=== PATIENT | female | born 1950 | race Caucasian/White ===

== ENCOUNTER 2017-07-11 08:07 | Day surgery (SDC) | payer OTHER ==
[~2017-07-11] VITALS: Ht 165.1 cm; Wt 81.0 kg
[2017-07-11] VITALS (10 sets, daily range): BP systolic 135–148; BP diastolic 83–97; PULSE 77–92; RESP 16–20; TEMP 98–99.1; O2SAT 96–100
[2017-07-11] MEDS ORDERED: CHLORHEXIDINE GLUCONATE 2 % 1 PACK (2 CLOTHS) TOPICAL PRN (08:45)
[2017-07-11] MEDS ORDERED: LORazepam 1 MG TAB SL SCH (08:45)
[2017-07-11] MEDS ORDERED: LACTATED RINGER'S 1000 ML IV PRN (08:45)
[2017-07-11] MEDS ORDERED: METOPROLOL TARTRATE 25 MG TAB PO PRN (08:45)
[2017-07-11] MEDS ORDERED: POVIDONE IODINE 5% (ANTISEPSIS KIT) 4 APPLICATIONS EACH NARE PRN (08:45)
[2017-07-11] MEDS ORDERED: SODIUM CHLORID 0.9% 500 ML IV PRN (08:45)
[2017-07-11] MEDS ORDERED: CHOL10008 (08:49)
[2017-07-11] MEDS ORDERED: OMEP40CA2 (08:49)
[2017-07-11] MEDS ORDERED: SODIUM CHLORID 0.9% 500 ML INJ 500 ML IV SCH (09:00)
[2017-07-11] MEDS ORDERED: LEVOFLOXACIN 500 MG PREMIX INJ 100 ML IV ONE (09:15)
[2017-07-11 09:20] LABS: AUTOMATED NEUTROPHIL # 1.9 TH/MM3 (1.8-7.7); BASOPHIL % 1.2 % (0.0-2.0); EOSINOPHIL # 0.1 TH/MM3 (0-0.4); EOSINOPHIL % 2.3 % (0.0-4.0); HEMATOCRIT 38.6 % (35.0-46.0); HEMOGLOBIN 13.5 GM/DL (11.6-15.3); LYMPH % 28.1 % (9.0-44.0); MEAN CELL VOLUME 97.2 FL (80.0-100.0); MEAN CORPUSCULAR HGB CONC 34.9 % (32.0-36.0); MEAN PLATELET VOLUME 7.4 FL (7.0-11.0); MONO % 13.3 % (0.0-8.0); MONOCYTE # 0.5 TH/MM3 (0-0.9); NEUT % 55.1 % (16.0-70.0); PLATELET COUNT 254 TH/MM3 (150-450); RED BLOOD COUNT 3.98 MIL/MM3 (4.00-5.30); RED CELL DISTRIBUTION WIDTH 12.2 % (11.6-17.2); WHITE BLOOD COUNT 3.5 TH/MM3 (4.0-11.0)
[2017-07-11] MEDS ORDERED: APIX2.5T PO (09:26)
[2017-07-11 09:27] LABS: INTERNATIONAL NORMALIZED RATIO 1.1 RATIO; PROTHROMBIN TIME - PATIENT 10.7 SEC (9.8-11.6)
[2017-07-11 09:44] LABS: CALCIUM 8.8 MG/DL (8.5-10.1); CREATININE 0.72 MG/DL (0.50-1.00)
--- NOTE | 2017-07-11 11:40 | EKG ---
Date Performed: 07/11/2017 Time Performed: 09:33:16 PTAGE: 66 years EKG: Sinus rhythm Left axis deviation Poor R wave progression - probable normal variant Low QRS voltages in precordial leads Borderline ECG NO PREVIOUS TRACING DOCTOR: Timothy Law Interpretating Date/Time 07/11/2017 11:38:14
[2017-07-11] MEDS ORDERED: GLYCOPYRROLATE 1 MG/5 ML SYRINGE IV PUSH ONE (12:00)
[2017-07-11] MEDS ORDERED: PHENYLEPH/NS 1000 MCG/10 ML SYR IV ONE (12:00)
[2017-07-11] MEDS ORDERED: NEOSTIGMINE 5 MG/5 ML SYRINGE IV PUSH ONE (12:00)
[2017-07-11] MEDS ORDERED: ONDANSETRON HCL 4 MG/2 ML VIAL IV ONE (12:00)
[2017-07-11] MEDS ORDERED: PROPOFOL 200 MG/20 ML AMP IV ONE (12:00)
[2017-07-11] MEDS ORDERED: LIDOCAINE HCL 1% PF 5 ML SYRINGE OTHER ONE (12:00)
[2017-07-11] MEDS ORDERED: DEXAMETHASONE SOD PHOS 4 MG/ML VIAL IV ONE (12:00)
[2017-07-11] MEDS ORDERED: ROCURONIUM INJ 50 MG/5 ML SYRINGE IV PUSH ONE (12:00)
[2017-07-11] MEDS ORDERED: SODIUM CHLOR 0.9% 250 ML INJ 500 ML IV ONE (12:00)
[2017-07-11] MEDS ORDERED: HEPARIN-D5W 25,000 U/250 ML 250 ML ONE (12:40)
[2017-07-11] MEDS ORDERED: PROTAMINE SULFATE 50 MG/5 ML VIAL ONE (12:41)
[2017-07-11] MEDS ORDERED: HEPARIN SODIUM - IV 10,000 UNITS/10 ML VIAL ONE ×2 (12:41→13:40)
[2017-07-11] MEDS ORDERED: LIDOCAINE HCL 1% PF 30 ML VIAL ONE (12:58)
--- NOTE | 2017-07-11 15:05 | CATHPROC ---
Patient Name: CINDI RIBERA Study #: [id number] Initial MD: Nusrat Mcdermott Date of : 1950 Study Date: 07/11/2017 Cardiac Catheterization Report 07/11/2017 3:09:52 PM Financial #: [id number] 1 of 9 Patient Name: CINDI RIBERA Study #: [id number] Initial MD: Nusrat Mcdermott Date of : 1950 Study Date: 07/11/2017 Entire Case Report Patient Information Patient Name CINDI RIBERA Date of 1950 Age 66 years Financial # [id number] Gender F AlternateID Lab Number 2 Room Number DC06 Height (in) 65.0 Height (cm) 165.1 BSA 1.92 Weight (lbs) 185.0 Weight (kg) 84.1 Patient Address/Phone Number Home Address [facility] Home Phone Number [address] [facility] [address] Study Information Study Number Admission Scheduled Start Study Start [id number] Jul 11 2017 8:07AM 07/11/2017 Jul 11 2017 12:10PM [place] Electrophysiology Study Admit Source Facility Department Other [facility] Attendant Physician and Clinical Staff Initial Nusrat Molina Manufacturing Sr Engineer Miya Caldwell,RT(R) TECH2 Other Anesthesia, SECURITY CONSULTANT Recorder Sruthi Drew BSN Recorder Antionette Syed,REGINO Scrub Matty EncinasRT(R) Procedures Performed Procedure Location (Site) Vessel Name Ablation Procedure ICE CATHETER INSERT RA Atruim 07/11/2017 3:09:52 PM Financial #: [id number] 2 of 9 Patient Name: CINDI RIBERA Study #: [id number] Initial MD: Nusrat Mcdermott Date of : 1950 Study Date: 07/11/2017 Equipment Time 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 Used 65 BUNDLE *[id number]- BUNDLE [id number] CATHETER, FR7 OPTIMA SPIRAL 13:12 [employer] FR7 *[id number]- Used BUNDLE BUNDLE [id number] 13:12 [employer] CATHETER, JSN, QUAD BUNDLE FR 5 *[id number]- Used BUNDLE [id number] 13:12 [employer]UN[employer] CATHETER, JSN, QUAD BUNDLE FR 5 *[id number]- Used BUNDLE [id number] SET, COOL POINT TUBING 13:12 BUND[employer] *[id number]- Used BUNDLE BUNDLE SHEATH, FR8.5 STEERABLE SM 13:12 BUND[employer] 71CM [id number] Used 71CM BUNDLE COVER, TRANSDUCER CABLE 612-113 13:12 [employer] Used ACUNAV *[id number] 13:12 CORDIS/PACER SHEATH, FR10 JANESSA 11CM FR 10 Used *[id number] 13:12 CORDIS/PACER SHEATH, FR9 JANESSA 11CM FR 9 [id number] Used [id number] 13:12 [employer] PACK, CCL CUSTOM * Used *[id number] 13:12 [employer] PACER EMMANUEL, LIMB * 2530 *[id number] Used [id number] 13:12 [employer] MEDICAL SHEATH, FR4.5 PRELUDE 11CM FR 4.5 Used [id number] 13:12 NAMIC TUBING, HIGH PRESSURE 48" 48" Used *[id number] 13:12 NAMIC TUBING, HIGH PRESSURE 48" 48" Used *[id number] [id number] 13:12 [employer] BL[employer]ET,WARM AIR CCL * Used *9854186 [id number] 13:12 [employer] MEDICAL ELECTRODE KIT, KOURTNEY X SURFACE * Used *[id number] 763679 13:12 [employer] MEDICAL SHEATH, EPS, FR6 FAST CATH FR 6 Used *[id number] 13:12 [employer] MEDICAL SHEATH, EPS, FR7 FAST CATH FR 7 [id number] Used [id number] 13:12 [employer] MEDICAL SHEATH, EPS, FR8 FAST CATH FR 8 Used *[id number] 13:33 [employer] MEDICAL SHEATH, FR8.5 SL0 196056 Used CATHETER, ACUNAV FR10 ICE [id number] 13:22 JEM FR 10 Used (JEM) *[id number] [facility] PAD, ELECTROSURGICAL 13:12 * [id number] *[id number] Used SURGICAL GROUNDING (BLUE) 07/11/2017 3:09:52 PM Financial #: [id number] 3 of 9 Patient Name: CINDI RIBERA Study #: [id number] Initial MD: Nusrat Mcdermott Date of : 1950 Study Date: 07/11/2017 Insurance Information Insurance Payor [facility] Health Insurance Third Republican Third Republican Number [facility] Medication Medication Total Dose (Bolus/Oral) Medication Total Dosage/Unit 1% XYLOCAINE 40 mL HEPARIN 32873 units PROTAMINE 40 mg Medications (Bolus/Oral) Medication Time Given Dosage/Unit Administered By Reason 1% XYLOCAINE 07/11/2017 1:14:03 PM 20 mL Nusrat Mcdermott 20 mL 1% XYLOCAINE given in lab by Nusrat Mcdermott in Left Groin via Subcutaneous. Ordered by Shayan Mcdermott 1% XYLOCAINE 07/11/2017 1:18:27 PM 20 mL Nusrat Mcdermott 20 mL 1% XYLOCAINE given in lab by Nusrat Mcdermott in Right Groin via Subcutaneous. Ordered by Dami Mcdermott. HEPARIN 07/11/2017 1:25:37 PM 40005 units Anesthesia, SECURITY CONSULTANT As per physicians v erbal order 60158 units HEPARIN given in lab by Anesthesia, SECURITY CONSULTANT via Peripheral IV. Ordered by Nusrat Mcdermott. Rach son: As per physicians verbal order. HEPARIN 07/11/2017 1:40:44 PM 2000 units Anesthesia, SECURITY CONSULTANT 2000 units HEPARIN given in lab by Anesthesia, SECURITY CONSULTANT in Right Antecubital via Peripheral IV. Ordered Nusrat Thakur. HEPARIN 07/11/2017 2:01:18 PM 2000 units Anesthesia, SECURITY CONSULTANT 2000 units HEPARIN given in lab by Anesthesia, SECURITY CONSULTANT in Right Antecubital via Peripheral IV. Ordered Nusrat Thakur. PROTAMINE 07/11/2017 2:43:04 PM 40 mg Anesthesia, SECURITY CONSULTANT 40 mg PROTAMINE given in lab by Anesthesia, SECURITY CONSULTANT. Ordered by Nusrat Mcdermott. Medication (Drip) Medication Time Given Dosage/Unit Concentration/Unit Diluent (ml) Solution HEPARIN DRIP 07/11/2017 1:44:11 PM 1000 units/hr 50461 units 250 D5W 1000 units/hr HEPARIN DRIP given in lab by Anesthesia, SECURITY CONSULTANT via Peripheral IV. Pump/Drip Flow = 10 ml /hr [place] [address] units in 250 ml. Ordered by Nusrat Mcdermott. ISUPREL 07/11/2017 2:26:02 PM 20 mcg/min 1 mg 250 NaCl .9 20 mcg/min ISUPREL given in lab by Anesthesia, SECURITY CONSULTANT via Peripheral IV. Pump/Drip Flow = 300 ml/hr usi ng NaCl .9 with a concentration of 1 mg in 250 ml. Ordered by Nusrat Mcdermott. Reason: As per physicians verbal order. 07/11/2017 3:09:52 PM Financial #: [id number] 4 of Patient Name: CINDI RIBERA Study #: [id number] Initial MD: Nusrat Mcdermott Date of : 1950 Study Date: 07/11/2017 Initial Case Assessment Cardiovascular HR NIBP 75 152/90 Edema Present Skin color Skin None Normal Warm Dry Circulatory - Right Pulses Dorsalis Pedis 2 Scale (0,1,2,3,4,d) Circulatory - Left Pulses Dorsalis Pedis 2 Scale (0,1,2,3,4,d) Circulatory - Lower Extremities Color Lower Right Color Lower Left Normal Normal Neurological State Oriented to time-place- Alert Moves all extremities person Respiration - General Respiration Rate SpO2 (%) (B/min) 18 99 07/11/2017 3:09:52 PM Financial #: [id number] 5 of 9 Patient Name: CINDI RIBERA Study #: [id number] Initial MD: Nusrat Mcdermott Date of : 1950 Study Date: 07/11/2017 Final Case Assessment Cardiovascular HR Rhythm NIBP 98 NSR 151/78 Edema Present Skin color Skin None Normal Warm Dry Circulatory - Right Pulses Dorsalis Pedis 2 Scale (0,1,2,3,4,d) Circulatory - Left Pulses Dorsalis Pedis 2 Scale (0,1,2,3,4,d) Circulatory - Lower Extremities Color Lower Right Color Lower Left Normal Normal Neurological State Oriented to time-place- Drowsy Moves all extremities person Respiration - General Respiration Rate SpO2 (%) (B/min) 14 100 Chronological Log Time Study Chronological Log 12:06:40 Patient arrived via Bed. 12:06:46 Patient Name, D.O.B, / Armband Verified By R.N. 12:09:51 Consent signed by the physician and the patient and verified by the Washroom Attendant staff. 12:09:53 Verbal Stimulation=2 Physical Stimulation=2 Airway=2 Respiration=2 TOTAL=8. (0=absent, 1=li mited, 2=present) 12:10:30 Patient has been NPO for More than 6Hrs. 12:10:31 Skin Breakdown- none per patient 12:10:34 Indwelling Galicia catheter present upon patient's arrival. 12:10:36 Patient Warmer Placed on the Table. 12:10:37 Disposable Defibrillator Pads Placed On Patient. 07/11/2017 3:09:52 PM Financial #: [id number] of 9 Patient Name: CINDI RIBERA Study #: [id number] Initial MD: Nusrat Mcdermott Date of : 1950 Study Date: 07/11/2017 12:10:38 Shadi Prominences Protected 12:10:42 History and physical on the chart or being dictated. Assessment: Initial Case, HR=75 BPM, LUWB=405/90 mmhg, Edema=None, Color=Normal, Skin = Warm, D ry Right Pulses: Fili Ped=2 Left Pulses: Fili Ped=2 12:15:24 Lower Right Extremities: Color=Normal Lower Left Extremities: Color=Normal Neurological: State=Alert, Ox3, PACHECO Respiration: Resp=18 B/min, SpO2=99 % 12:19:34 A # 20 IV was noted in the Antecubital (right). Grade = 0 0.9%NaCl @ KVO 12:20:43 A # 20 IV was noted in the Antecubital (left). Grade = 0 0.9%NaCl @ KVO 12:22:35 Table restraints applied according to hospital policy 12:29:54 Anesthesia at bedside. Assumes care of patient. 12:46:22 Anesthesiologist present for intubation. 12:51:51 Bilateral groins prepped with 2% chlorhexidine, and draped after a 3 minute waiting time. 12:53:00 Pt has difficult airway. Waiting for Glidescope supplies to arrive from OR 12:54:29 Reference ECG taken 13:01:43 Pt intubated using Glidescope without difficulty. 13:03:44 MD arrived. Time Out. Correct patient, procedure, procedure equipment, site and side verified with physicia n present. Time 13::09 concurred by MD, individual staff and SECURITY CONSULTANT. Time Out #2 - Consents verified, patient in correct position, all results are labled and displa yed, safety precautions 13:09:58 taken, antibiotics administered. Time out concurred by MD, individual staff and SECURITY CONSULTANT in procedu re 13:09:59 Case Start 13:10:37 JERED in progress. 13:13:09 JERED completed. 13:14:03 20 mL 1% XYLOCAINE given in lab by Nusrat Mcdermott in Left Groin via Subcutaneous. Ordered by Nusrat Mcdermott. 13:14:21 Vascular access was obtained in the Fem Vein (left). 13:14:37 Vascular access was obtained in the Fem Vein (left). 13:14:50 Vascular access was obtained in the Fem Vein (left). 13:15:25 Vascular access was obtained in the Fem Art (left). 13:15:33 A SHEATH, FR4.5 PRELUDE 11CM FR 4.5 was advanced into the Fem Art (left) using the Modified Seldinger technique. 13:15:59 A SHEATH, EPS, FR6 FAST CATH FR 6 was advanced into the Fem Vein (left) using the Modified Seldinger technique. 13:16:51 A SHEATH, EPS, FR7 FAST CATH FR 7 was advanced into the Fem Vein (left) using the Modified Seldinger technique. 13:17:04 A SHEATH, FR10 JANESSA 11CM FR 10 was advanced into the Fem Vein (left) using the Modified S eldinger technique. 13:18:27 20 mL 1% XYLOCAINE given in lab by Nusrat Mcdermott in Right Groin via Subcutaneous. Ordered b Nusrat Flaherty. 13:18:50 Vascular access was obtained in the Fem Vein (right). 13:19:39 A SHEATH, EPS, FR8 FAST CATH FR 8 was advanced into the Fem Vein (right) using the Modified Seldinger technique. A CATHETER, JSN, QUAD BUNDLE FR 5 was advanced vis Fem Vein (left) and placed in the CS. Placem ent was visually 13:21:00 confirmed under fluoroscopy. via 7fr sheath A CATHETER, JSN, QUAD BUNDLE FR 5 was advanced vis Fem Vein (left) and placed in the HIS. Place ment was 13:21:18 visually confirmed under fluoroscopy. via 6fr sheath 07/11/2017 3:09:52 PM Financial #: [id number] 7 of 9 Patient Name: CINDI RIBERA Study #: [id number] Initial MD: Nusrat Mcdermott Date of : 1950 Study Date: 07/11/2017 13:22:16 CATHETER, ACUNAV FR10 ICE (Percolate) FR 10 Was Postioned. A SHEATH, FR8.5 STEERABLE SM 71CM BUNDLE 71CM was exchanged in the Fem Vein (right). This was n ecessary in 13:25:09 order for catheter support. 83618 units HEPARIN given in lab by Anesthesia, SECURITY CONSULTANT via Peripheral IV. Ordered by Jeff Mcdermott Reason: As per 13:25:37 physicians verbal order. 13:26:00 Marion needle in 13:28:38 temp 35.8 13:30:09 Introducer wire back in to help support Marion for transseptal access. 13:33:36 Activated Clotting Time Drawn 13:33:46 A SHEATH, FR8.5 SL0 was exchanged in the Fem Vein (right). This was necessary in order for catheter support. A SHEATH, FR8.5 STEERABLE SM 71CM BUNDLE 71CM was exchanged in the Fem Vein (right). This was n ecessary in 13:36:31 order for catheter support. 13:37:01 baylis in 13:38:25 A eps was advanced to the right atrium and passed through the septal wall to the left atriu m. 13:38:40 Marion out A CATHETER, FR7 OPTIMA SPIRAL BUNDLE FR7 was advanced vis Fem Vein (right) and placed in the LA . Placement 13:38:49 was visually confirmed under fluoroscopy. 13:39:16 mapping in progress 13:39:26 ACT (Normal Range 90-180) = 334 13:40:44 2000 units HEPARIN given in lab by Anesthesia, SECURITY CONSULTANT in Right Antecubital via Peripheral IV. Ordered by Nusrat Mcdermott. 1000 units/hr HEPARIN DRIP given in lab by Anesthesia, SECURITY CONSULTANT via Peripheral IV. Pump/Drip Flow = 10 ml/hr using 13:44:11 D[place] [address] units in 250 ml. Ordered by Nusrat Mcdermott. 13:51:12 mapping complete; spiral catheter out A CATHETER, TACTICATH ABLAT 65 BUNDLE was advanced vis Fem Vein (right) and placed in the LA. P lacement was 13:52:03 visually confirmed under fluoroscopy. 13:52:12 Ablation in progress 13:55:50 Activated Clotting Time Drawn 14:01:02 ACT (Normal Range 90-180) = 339 14:01:18 2000 units HEPARIN given in lab by Anesthesia, SECURITY CONSULTANT in Right Antecubital via Peripheral IV. Ordered by Nusrat Mcdermott. 14:19:46 Ablation complete. 14:21:32 Activated Clotting Time Drawn 20 mcg/min ISUPREL given in lab by Anesthesia, SECURITY CONSULTANT via Peripheral IV. Pump/Drip Flow = 300 ml/ hr using NaCl .9 14:26:02 with a concentration of 1 mg in 250 ml. Ordered by Nusrat Mcdermott. Reason: As per physicians abdoulaye bal order. 14:28:27 ACT (Normal Range 90-180) = 342 14:37:49 Isuprel and Heparin gtt off 14:41:21 Case End 14:41:36 All Catheters removed 14:41:56 Ablation procedure performed: AFIB. 14:42:01 EP Procedure was performed. 14:42:16 Sheath(s) left in place, will be removed in Holding Area 14:42:26 No case complications noted. 14:42:30 Cine recording checked. 07/11/2017 3:09:52 PM Financial #: [id number] 8 of 9 Patient Name: CINDI RIBERA Study #: [id number] Initial MD: Nusrat Mcdermott Date of : 1950 Study Date: 07/11/2017 14:43:04 40 mg PROTAMINE given in lab by Anesthesia, SECURITY CONSULTANT. Ordered by Nusrat Mcdermott. 14:44:41 PACU called. Spoke to Brandi 14:44:48 Bedside Report will be given. 14:54:33 ACT (Normal Range 90-180) = 132 14:57:28 Sterile dressings applied to bilateral sheath sites 14:58:05 Pt extubated to supplemental oxygen by anesthesia. Assessment: Final Case, HR=98 BPM, Rhythm=NSR, SMEV=352/78 mmhg, Edema=None, Color=Normal, Ski n = Warm, Dry Right Pulses: Fili Ped=2 Left Pulses: Fili Ped=2 15:02:02 Lower Right Extremities: Color=Normal Lower Left Extremities: Color=Normal Neurological: State=Drowsy, Ox3, PACHECO Respiration: Resp=14 B/min, PcT3=367 % 15:05:30 Patient moved to stretcher 15:06:12 Defibrillator and ground pads removed. Skin intact. 15:09:00 Pt transported to PACU via bed with SECURITY CONSULTANT and tech accompanying pt in stable condition marina castro independently. End Study - Contrast Media Used In Study Contrast Total Opened (mL) Total Used (mL) Total Wasted (mL) Omnipaque 0 0 0 End Study - Radiation Exposure Fluoro Time (minutes) 4.3 End Study - Patient Disposition Complications Transferred To No Telemetry Bed 07/11/2017 3:09:52 PM Financial #: [id number]
--- NOTE | 2017-07-11 15:12 | PD.CARD ---
Atrial Fibrillation Ablation PROCEDURE DATE: Jul 11, 2017 PROCEDURES PERFORMED: 1. Electrophysiology study on Isuprel infusion 2. CS cannulation 3. 3-D mapping 4. Transseptal approach 5. Right and left heart catheterization 6. Intracardiac echo 7. Radiofrequency ablation of atrial fibrillation 8. Pulmonary vein isolation 9. Posterior wall ablation 10. Mitral line creation 11. Anterior wall ablation INDICATIONS FOR THE PROCEDURE Ms. Evans is a 66-year-old female with hx of atrial fibrillation, previous ablation, very symptomatic, referred for electrophysiology study and ablation. The risks, the nature and the benefits of the procedure were clearly stated to her. The risks include pneumothorax, cardiac perforation, stroke, need for open heart surgery and even . The patient understood and agreed to proceed. DESCRIPTION OF THE PROCEDURE IN DETAIL As written informed consent was obtained prior to esophageal echocardiogram, the patient was kept on the table where she was prepped and draped in the usual sterile fashion. Conscious sedation was initiated and maintained throughout the procedure by the anesthesiologist. Once sedation was verified, the right and left inguinal areas were anesthetized with 2% Xylocaine. Using modified Seldinger technique, the left femoral vein was cannulated on three occasions, three guidewires were advanced. Over the wire a 6, 7 and a 10-Vincentian Hemaquet were advanced. Then the left femoral artery was cannulated on one occasion, one guidewire was advanced. Over the wire a 4-Vincentian Hemaquet was advanced. Then the right femoral vein was cannulated on one occasion, one guidewire was advanced. Over the wire a 8-Vincentian Hemaquet was advanced. Then under fluoroscopic guidance through the 6 and 7-Vincentian Hemaquet, two 5-Vincentian Farida curved quadripolar electrophysiology catheters were advanced and placed around the His as well as coronary sinus. Basic interval was measured. The patient was in sinus rhythm. Through the 10-Vincentian Hemaquet, a Cordis Baldwin AcuNav intracardiac echo catheter was advanced and placed at the right atrium. Multiple view was obtained. There was no pericardial effusion, pulmonary vein was seen, atrial septal was visualized. Then the 8-Vincentian Hemaquet in the right femoral vein was exchanged for Agilis transseptal sheath that was placed all the way to the superior vena cava. Through the sheath a Shelia needle was advanced, then the sheath, the dilator and the needle were progressed until foci engaged. Once engaged, the needle was advanced. RF was delivered for 2 seconds. I was able to cross into the left atrium. Once the needle crossed, the dilator was advanced. Once the dilator crossed, the sheath was advanced. Once the sheath crossed, the dilator and the needle were removed. At this point I did flood the system and fluid movement was seen in the left atrium the indicates the sheath is in good position. The patient already received 10,000 units of heparin. The goal is to keep an ACT around 350 during ablation. Then through the sheath a St. Kirill 20 pulse circumferential catheter was advanced. Using Zuli endocardial solution mapping system, a two-dimensional configuration of the left atrium was obtained. Points were taken at the left superior and inferior veins, right superior and inferior veins, mitral valve, and appendages. Then through the sheath a St. Kirill TactiCath 65cm 3.5mm irrigated tipped mapping and radiofrequency ablation catheter was advanced. Esophageal probe was placed temperature monitoring during ablation. When it increased to 0.5 degrees Celsius above baseline, I moved to a different area of the atrium. First I did isolate the left superior and inferior vein. I did make a big anvik around the veins. Posterior was ablated. A mitral line was created. Then the right superior and inferior veins were isolated. I did remap the atrium. I did advance the circumferential catheter again into the vein. There was no signal into the vein, pacing from the vein showed no conduction to the atrium. Isuprel infusion was initiated at 20 mcg for over 10 minutes. No tachyarrhythmia was induced, post Isuprel no tachyarrhythmia was induced. At that point the procedure was complete. All catheters were removed, atrial septal sheath was exchanged for 9-Vincentian Hemaquet, intracardiac echo showed no pericardial effusion. There is still good flow in the pulmonary vein. The patient is going to be transferred to the recovery room. No incident report. The patient tolerated the procedure. Blood loss was minimal. FINDINGS 1. Electrocardiogram: At baseline the patient was in sinus rhythm, post procedure electrocardiogram was unchanged. 2. Basic interval: Base cycle length was around 790ms. AH at 98 and HV at 46 milliseconds. 3. Tachyarrhythmia: Atrial fibrillation was mapped and ablated. The ablation was successful. CONCLUSION Successful electrophysiology study, mapping, radiofrequency ablation of atrial fibrillation, pulmonary vein isolation, posterior ablation, mitral line creation. COMMENTS AND RECOMMENDATIONS The patient is going to be transferred to the telemetry unit. Will be observed and when stable can be discharged home. Nusrat Mcdermott MD Jul 11, 2017 15:12
[2017-07-11] MEDS ORDERED: ONDANSETRON HCL 4 MG/2 ML VIAL IV PUSH PRN (15:15)
[2017-07-11] MEDS ORDERED: BACITRACIN OINT 0.9 GM PKT TOP ONE (15:15)
[2017-07-11] MEDS ORDERED: LIDOCAINE HCL 1% 50 ML VIAL INFIL PRN (15:15)
[2017-07-11] MEDS ORDERED: LORazepam 2 MG/ML VIAL IV PUSH PRN (15:15)
[2017-07-11] MEDS ORDERED: ATROPINE SULFATE 1 MG/ML VIAL IV PUSH PRN (15:15)
[2017-07-11] MEDS ORDERED: SODIUM CHLOR 0.9% 250 ML INJ 250 ML IV PRN (15:15)
[2017-07-11] MEDS ORDERED: oxyCODONE/ACETAMINOPHEN 5 MG/325 MG TAB PO PRN ×2 (15:15)
[2017-07-11] MEDS ORDERED: DO NOT ADM ANY ANTICOAGULANT DRUGS PRN (15:19)
[2017-07-11] MEDS ORDERED: MORPHINE SULFATE 8 MG/ML INJ ONE (15:21)
[2017-07-11] MEDS ORDERED: HYDROmorphone HCL PF 2 MG/ML VIAL ONE (15:53)
[2017-07-12] VITALS (9 sets, daily range): BP systolic 141; BP diastolic 73; PULSE 75–84; RESP 18; TEMP 97.8; O2SAT 99
[2017-07-12 06:48] LABS: INTERNATIONAL NORMALIZED RATIO 1.1 RATIO
--- NOTE | 2017-07-12 08:26 | PD.CARD.PN ---
Objective Medications Current Medications Medications (Trade) Dose Ordered Sig/Bernadette Route Start Time Stop Time Status Last Admin Sodium Chloride 500 ml @ 30 mls/hr [id number] IV 07/11/17 09:00 (Ativan) 1 mg PLANER CHAIN OFFBEARER SL 07/11/17 08:45 07/14/17 08:44 07/11/17 09:43 Lactated Ringer's 1,000 ml @ 30 mls/hr Q24H PRN IV 07/11/17 08:45 07/14/17 08:44 Sodium Chloride 500 ml @ 30 mls/hr [id number] PRN IV 07/11/17 08:45 07/14/17 08:44 (Lopressor) 25 mg PLANER CHAIN OFFBEARER PRN PO 07/11/17 08:45 07/14/17 08:44 (Betadine 5% Antisepsis Kit) 1 applic PLANER CHAIN OFFBEARER PRN EACH NARE 07/11/17 08:45 07/14/17 08:44 (Chlorhexidine 2% Cloth) 3 pack PLANER CHAIN OFFBEARER PRN TOPICAL 07/11/17 08:45 07/14/17 08:44 (Percocet 5-325 Mg) 1 tab Q4H PRN PO 07/11/17 15:15 (Percocet 5-325 Mg) 2 tab Q4H PRN PO 07/11/17 15:15 (Ativan Inj) 0.5 mg UNSCH PRN IV PUSH 07/11/17 15:15 07/12/17 15:14 07/11/17 22:55 (Atropine Inj) 0.5 mg UNSCH PRN IV PUSH 07/11/17 15:15 Sodium Chloride 250 ml @ 500 mls/hr ONCE PRN IV 07/11/17 15:15 07/12/17 15:14 (Zofran Inj) 4 mg Q4H PRN IV PUSH 07/11/17 15:15 (Xylocaine 1% Inj (50 ml)) 10 ml UNSCH PRN INFIL 07/11/17 15:15 07/12/17 15:14 Miscellaneous Information ALL NURSING DEPARTME... UNSCH PRN .XX 07/11/17 15:19 07/12/17 15:18 Vital Signs / I&O Vital Signs Date Time Temp Pulse Resp B/P (MAP) Pulse Ox O2 Delivery O2 Flow Rate FiO2 07/12/17 07:45 97.8 81 18 141/73 (95) 99 07/11/17 22:31 98 21 07/11/17 21:47 99.1 92 16 135/85 (102) 99 07/11/17 18:45 88 20 144/90 (108) 99 07/11/17 18:15 90 16 145/90 (108) 100 07/11/17 18:11 85 16 141/79 (99) 100 Nasal Cannula 2 07/11/17 18:00 98.0 90 16 146/97 (113) 100 07/11/17 16:00 83 16 138/81 (100) 100 Nasal Cannula 2 07/11/17 15:45 80 16 132/82 (99) 100 Nasal Cannula 2 07/11/17 15:30 85 16 144/76 (98) 100 Nasal Cannula 2 07/11/17 15:15 98.0 80 16 136/71 (92) 100 Nasal Cannula 2 07/11/17 08:45 98.6 77 18 148/83 (104) 96 I/O 07/11/17 07/11/17 07/11/17 07/12/17 07/12/17 07/12/17 07:00 15:00 23:00 07:00 15:00 23:00 Intake Total 1000 ml 720 ml Output Total 1300 ml 550 ml Balance -300 ml 170 ml Intake Oral 720 ml IV Total 1000 ml Output Urine Total 1300 ml 550 ml Physical Exam GENERAL: Well-nourished, well-developed patient. SKIN: Warm and dry. Groin site soft without bruising or bleeding. HEAD: Normocephalic. EYES: No scleral icterus. No injection or drainage. NECK: Supple, trachea midline. No JVD or lymphadenopathy. CARDIOVASCULAR: Regular rate and rhythm without murmurs, gallops, or rubs. RESPIRATORY: Breath sounds equal bilaterally. No accessory muscle use. GASTROINTESTINAL: Abdomen soft, non-tender, nondistended. EXTREMITIES: No cyanosis, or edema. NEUROLOGICAL: Awake, alert, and oriented x 3. Non-focal. Laboratory Laboratory Tests Test 07/11/17 08:30 07/12/17 05:51 White Blood Count 3.5 TH/MM3 Red Blood Count 3.98 MIL/MM3 Hemoglobin 13.5 GM/DL Hematocrit 38.6 % Mean Corpuscular Volume 97.2 FL Mean Corpuscular Hemoglobin 34.0 PG Mean Corpuscular Hemoglobin Concent 34.9 % Red Cell Distribution Width 12.2 % Platelet Count 254 TH/MM3 Mean Platelet Volume 7.4 FL Neutrophils (%) (Auto) 55.1 % Lymphocytes (%) (Auto) 28.1 % Monocytes (%) (Auto) 13.3 % Eosinophils (%) (Auto) 2.3 % Basophils (%) (Auto) 1.2 % Neutrophils # (Auto) 1.9 TH/MM3 Lymphocytes # (Auto) 1.0 TH/MM3 Monocytes # (Auto) 0.5 TH/MM3 Eosinophils # (Auto) 0.1 TH/MM3 Basophils # (Auto) 0.0 TH/MM3 CBC Comment DIFF FINAL Differential Comment Prothrombin Time 10.7 SEC 11.0 SEC Prothromb Time International Ratio 1.1 RATIO 1.1 RATIO Activated Partial Thromboplast Time 23.6 SEC 23.3 SEC Blood Urea Nitrogen 14 MG/DL Creatinine 0.72 MG/DL Random Glucose 86 MG/DL Calcium Level 8.8 MG/DL Sodium Level 135 MEQ/L Potassium Level 3.5 MEQ/L Chloride Level 103 MEQ/L Carbon Dioxide Level 26.0 MEQ/L Anion Gap 6 MEQ/L Estimat Glomerular Filtration Rate 82 ML/MIN Assessment and Plan Problem List: (1) Atrial fibrillation ICD Codes: I48.91 - Unspecified atrial fibrillation Plan: Sinus rhythm on telemetry. (2) S/P ablation of atrial fibrillation ICD Codes: Z98.890 - Other specified postprocedural states; Z86.79 - Personal history of other diseases of the circulatory system Plan: Groin site stable, continue Eliquis. Discharge home. Follow-up with Dr. Mcdermott in 3 weeks per my discussion with him. Problem Qualifiers (1) Atrial fibrillation: Qualified Codes: I48.0 - Paroxysmal atrial fibrillation Ria Carrasquillo Jul 12, 2017 08:26
--- NOTE | 2017-07-12 21:14 | EKG ---
Date Performed: 07/12/2017 Time Performed: 05:37:16 PTAGE: 66 years EKG: Sinus rhythm Left axis deviation Poor R wave progression - probable normal variant Inferior T wave changes are no nspecific Low QRS voltages in precordial leads Borderline ECG PREVIOUS TRACING : 07/11/2017 17.09 Since the previous tracing, no significant change noted DOCTOR: Sunday Otto Interpretating Date/Time 07/12/2017 21:12:28
--- NOTE | 2017-07-12 21:31 | EKG ---
Date Performed: 07/11/2017 Time Performed: 17:09:38 PTAGE: 66 years EKG: Sinus rhythm BORDERLINE LEFT AXIS DEVIATION BORDERLINE ECG PREVIOUS TRACING : 07/11/2017 09.33 Since the previous tracing, no significant change noted DOCTOR: Sunday Otto Interpretating Date/Time 07/12/2017 21:30:19
== END 2017-07-12 11:24 | disposition home or self-care (01) ==
LOC: HDOC 08:07 → HDIC 08:07 → HCIS 18:04 → HDOC 07-12 11:24
PROVIDERS: ATTEND Internal Medicine Interventional Cardiology
DX: I48.91 Unspecified atrial fibrillation (principal); R00.2 Palpitations; K21.9 Gastro-esophageal reflux disease without esophagitis; Z85.3 Personal history of malignant neoplasm of breast
CPT/HCPCS: 00537; 80048; 85002; 85025; 85610; 85730; 86850; 86900; 86901; 93005; 93312; 93320; 93325; 93613; 93623; 93656; 93662; C1730; C1731; C1732; C1759; C1766; C2630; J1100; J1170; J1644; J1956; J2060; J2270; J2370; J2405; J2710; J2720; J3010; J7050

== ENCOUNTER 2017-08-06 13:56 | Inpatient (IN) | payer OTHER ==
[~2017-08-06] VITALS: Ht 165.1 cm; Wt 86.1 kg
[2017-08-06] VITALS (7 sets, daily range): BP systolic 117–161; BP diastolic 67–95; PULSE 78–108; RESP 16–18; TEMP 98.1–98.7; O2SAT 99–100
[~2017-08-06 13:56] MED LIST: APIX2.5T PO; CHOL10008; OMEP40CA2
[2017-08-06] MEDS ORDERED: SODIUM CHLORIDE 0.9% FLUSH 10 ML FLUSH IVF PRN (14:15)
--- NOTE | 2017-08-06 14:15 | PD ---
HPI Chief Complaint: GI Complaint Time Seen by Provider: 14:08 Travel History International Travel<30 days: No Contact w/Intl Traveler<30days: No Traveled to known affect area: No History of Present Illness HPI 66-year-old female with history of A. fib, recent ablation by Dr. Mcdermott which she states was unsuccessful, started Eliquis again today, presents emergency department for evaluation of confusion and generalized weakness. Patient states over the last 3-4 days she has had some nausea and weakness. She states every time she stands up she "just feels weak." She does not feel lightheaded or like she is going to pass out. Today she got up and she felt so weak she fell back onto her buttocks. She did not pass out. She tells me she remembers the entire thing, however her friend at bedside tells me that she looked pale and was "not with it" for a brief period of time. Patient reports having an upset stomach over the last 3-4 days and she is taking Pepto-Bismol. This morning she noticed she had a black tongue. She denies any fever or chills. She denies any significant pain. No sensation of shortness of breath or palpitations. Patient has no other symptoms to report at this time. PFSH Past Medical History Hx Anticoagulant Therapy: Yes (ELIQUIS) Atrial Fibrillation: Yes Anxiety: Yes Cancer: Yes (RIGHT BREAST) Cardiovascular Problems: Yes (ABLATIONx2) Respiratory: Yes (SOB) Tetanus Vaccination: < 5 Years Influenza Vaccination: Yes Social History Alcohol Use: Yes Tobacco Use: Yes Substance Use: No Allergies-Medications (Allergen,Severity, Reaction): Coded Allergies: No Known Allergies (Unverified , 08/06/17) Reported Meds & Prescriptions Reported Meds & Active Scripts Active Reported Eliquis (Apixaban) 2.5 Mg Tab 2.5 Mg PO BID Omeprazole 40 Mg Cap 40 Mg DAILY Vitamin D3 (Cholecalciferol) 1,000 Unit Cap 1,000 Units DAILY Review of Systems Except as stated in HPI: all other systems reviewed are Neg Physical Exam Narrative GENERAL: Well-nourished female patient, in no acute distress. SKIN: Focused skin assessment warm/dry. HEAD: Atraumatic. Normocephalic. EYES: Pupils equal and round. No scleral icterus. No injection or drainage. ENT: No nasal bleeding or discharge. Mucous membranes pink and moist. NECK: Trachea midline. No JVD. CARDIOVASCULAR: Tachycardic rate. RESPIRATORY: No accessory muscle use. Clear throughout to auscultation. Breath sounds equal bilaterally. GASTROINTESTINAL: Abdomen soft, non-tender, nondistended. Hepatic and splenic margins not palpable. MUSCULOSKELETAL: No obvious deformities. No clubbing. No cyanosis. No edema. NEUROLOGICAL: Awake and alert. No obvious cranial nerve deficits. Motor grossly within normal limits. Normal speech. Data Data Last Documented VS Vital Signs Date Time Temp Pulse Resp B/P (MAP) Pulse Ox O2 Delivery O2 Flow Rate FiO2 08/06/17 15:01 99 16 146/87 (106) 102 16 148/91 (110) 108 16 125/79 (94) 08/06/17 14:27 100 Room Air 08/06/17 13:58 98.7 Orders Orders Electrocardiogram (08/06/17 14:13) Complete Blood Count With Diff (08/06/17 14:13) Comprehensive Metabolic Panel (08/06/17 14:13) Magnesium (Mg) (08/06/17 14:13) Urinalysis - C+S If Indicated (08/06/17 14:13) Chest, Single Ap (08/06/17 14:13) Ecg Monitoring (08/06/17 14:13) Iv Access Insert/Monitor (08/06/17 14:13) Oximetry (08/06/17 14:13) Sodium Chloride 0.9% Flush (Ns Flush) (08/06/17 14:15) Influenzae A/B Antigen (08/06/17 14:13) Ct Brain W/O Iv Contrast(Rout) (08/06/17 ) Orthostatic Vital Signs (08/06/17 14:15) Sodium Chlor 0.9% 1000 Ml Inj (Ns 1000 M (08/06/17 15:30) Labs Laboratory Tests Test 08/06/17 14:20 White Blood Count 7.4 TH/MM3 Red Blood Count 4.74 MIL/MM3 Hemoglobin 16.1 GM/DL Hematocrit 44.3 % Mean Corpuscular Volume 93.4 FL Mean Corpuscular Hemoglobin 33.9 PG Mean Corpuscular Hemoglobin Concent 36.3 % Red Cell Distribution Width 13.2 % Platelet Count 232 TH/MM3 Mean Platelet Volume 7.0 FL Neutrophils (%) (Auto) 72.3 % Lymphocytes (%) (Auto) 11.0 % Monocytes (%) (Auto) 16.3 % Eosinophils (%) (Auto) 0.2 % Basophils (%) (Auto) 0.2 % Neutrophils # (Auto) 5.4 TH/MM3 Lymphocytes # (Auto) 0.8 TH/MM3 Monocytes # (Auto) 1.2 TH/MM3 Eosinophils # (Auto) 0.0 TH/MM3 Basophils # (Auto) 0.0 TH/MM3 CBC Comment AUTO DIFF Differential Comment AUTO DIFF CONFIRMED Hematology Comments Blood Urea Nitrogen 10 MG/DL Creatinine 0.75 MG/DL Random Glucose 98 MG/DL Total Protein 8.3 GM/DL Albumin 4.2 GM/DL Calcium Level 9.1 MG/DL Magnesium Level 2.0 MG/DL Alkaline Phosphatase 54 U/L Aspartate Amino Transf (AST/SGOT) 17 U/L Alanine Aminotransferase (ALT/SGPT) 22 U/L Total Bilirubin 2.1 MG/DL Sodium Level 114 MEQ/L Potassium Level 3.0 MEQ/L Chloride Level 75 MEQ/L Carbon Dioxide Level 25.5 MEQ/L Anion Gap 14 MEQ/L Estimat Glomerular Filtration Rate 78 ML/MIN [facility] Medical Decision Making Medical Screen Exam Complete: Yes Emergency Medical Condition: Yes Medical Record Reviewed: Yes Differential Diagnosis Arrhythmia versus intracranial etiology versus electrolyte abnormality versus viral syndrome Narrative Course 66-year-old female presents to emergency department for evaluation and general weakness. Patient appears without distress. She is slightly tachycardic but overall her vital signs are stable. She has no focal deficits or weakness. She is oriented 3. Laboratory Tests Test 08/06/17 14:20 White Blood Count 7.4 TH/MM3 Red Blood Count 4.74 MIL/MM3 Hemoglobin 16.1 GM/DL Hematocrit 44.3 % Mean Corpuscular Volume 93.4 FL Mean Corpuscular Hemoglobin 33.9 PG Mean Corpuscular Hemoglobin Concent 36.3 % Red Cell Distribution Width 13.2 % Platelet Count 232 TH/MM3 Mean Platelet Volume 7.0 FL Neutrophils (%) (Auto) 72.3 % Lymphocytes (%) (Auto) 11.0 % Monocytes (%) (Auto) 16.3 % Eosinophils (%) (Auto) 0.2 % Basophils (%) (Auto) 0.2 % Neutrophils # (Auto) 5.4 TH/MM3 Lymphocytes # (Auto) 0.8 TH/MM3 Monocytes # (Auto) 1.2 TH/MM3 Eosinophils # (Auto) 0.0 TH/MM3 Basophils # (Auto) 0.0 TH/MM3 CBC Comment AUTO DIFF Differential Comment AUTO DIFF CONFIRMED Hematology Comments Blood Urea Nitrogen 10 MG/DL Creatinine 0.75 MG/DL Random Glucose 98 MG/DL Total Protein 8.3 GM/DL Albumin 4.2 GM/DL Calcium Level 9.1 MG/DL Magnesium Level 2.0 MG/DL Alkaline Phosphatase 54 U/L Aspartate Amino Transf (AST/SGOT) 17 U/L Alanine Aminotransferase (ALT/SGPT) 22 U/L Total Bilirubin 2.1 MG/DL Sodium Level 114 MEQ/L Potassium Level 3.0 MEQ/L Chloride Level 75 MEQ/L Carbon Dioxide Level 25.5 MEQ/L Anion Gap 14 MEQ/L Estimat Glomerular Filtration Rate 78 ML/MIN Last Impressions Chest X-Ray 08/06/17 1413 Signed Impressions: Service Date/Time: Sunday, August 06, 2017 14:48 - CONCLUSION: Nonspecific hazy opacity at the right costophrenic sulcus that appears to extend outside of the lung and likely represents superficial soft tissue shadow. No other acute cardiopulmonary disease identified. Yunior Guerrero MD Head CT 08/06/17 0000 Signed Impressions: Service Date/Time: Sunday, August 06, 2017 14:29 - CONCLUSION: No acute intracranial findings. Yunior Guerrero MD Findings are reviewed. I discussed the patient with my attending physician who is also assessed the patient. Patient will be admitted to the hospitalist for hyponatremia. Plan is discussed with the patient. She is in agreement with this plan of care. Diagnosis Primary Impression: Hyponatremia Additional Impression: Weakness Admitting Information Admitting Physician Requests: Admit Condition: Stable Liane Haynes August 06, 2017 14:15
--- NOTE | 2017-08-06 14:45 | RADRPT ---
EXAM DATE/TIME: 08/06/2017 14:29 [facility] COMPARISON: No previous studies available for comparison. INDICATIONS : Altered mental status. RADIATION DOSE: 56.35 CTDIvol (mGy) MEDICAL HISTORY : Carcinoma, breast. Cardiovascular disease SURGICAL HISTORY : None. ENCOUNTER: Initial ACUITY: 1 day PAIN SCALE: Non-responsive LOCATION: Bilateral head TECHNIQUE: Multiple contiguous axial images were obtained of the head. Using automated exposure control and adj ustment of the mA and/or kV according to patient size, radiation dose was kept as low as reasonably a chievable to obtain optimal diagnostic quality images. DICOM format image data is available electro nically for review and comparison. FINDINGS: CEREBRUM: The ventricles are normal for age. No evidence of midline shift, mass lesion, hemorrhage or acute in farction. No extra-axial fluid collections are seen. POSTERIOR FOSSA: The cerebellum and brainstem are intact. The 4th ventricle is midline. The cerebellopontine angle i s unremarkable. EXTRACRANIAL: The visualized portion of the orbits is intact. SKULL: The calvaria is intact. No evidence of skull fracture. CONCLUSION: No acute intracranial findings. Yunior Guerrero MD on August 06, 2017 at 14:41 Board Certified Radiologist. This report was verified electronically.
--- NOTE | 2017-08-06 15:13 | RADRPT ---
EXAM DATE/TIME: 08/06/2017 14:48 [facility] COMPARISON: No previous studies available for comparison. INDICATIONS : Heart Palpitations MEDICAL HISTORY : Carcinoma, breast. Cardiovascular disease. Atrial Fib SURGICAL HISTORY : None. ENCOUNTER: Initial ACUITY: 1 day PAIN SCORE: 0/10 LOCATION: chest FINDINGS: Single AP view of the chest. Nonspecific hazy opacity at the lateral right lung base may represent banerjee perficial soft tissue shadow. The lungs are otherwise clear. Cardiomediastinal silhouette within norm al limits. No evidence of pleural effusion or pneumothorax. CONCLUSION: Nonspecific hazy opacity at the right costophrenic sulcus that appears to extend outside of the lung and likely represents superficial soft tissue shadow. No other acute cardiopulmon renny disease identified. Yunior Guerrero MD on August 06, 2017 at 15:09 Board Certified Radiologist. This report was verified electronically.
[2017-08-06 15:17] LABS: ALBUMIN 4.2 GM/DL (3.4-5.0); ALKALINE PHOSPHATASE 54 U/L (45-117); ALT (GPT) 22 U/L (10-53); AST (GOT) 17 U/L (15-37); BICARBONATE 25.5 MEQ/L (21.0-32.0); BLOOD UREA NITROGEN 10 MG/DL (7-18); CALCIUM 9.1 MG/DL (8.5-10.1); CHLORIDE 75 MEQ/L (98-107); CREATININE 0.75 MG/DL (0.50-1.00); GLOMERULAR FILTRATION RATE 78 ML/MIN (>89); GLUCOSE,RANDOM 98 MG/DL (74-106); TOTAL BILIRUBIN ADULT 2.1 MG/DL (0.2-1.0); TOTAL PROTEIN 8.3 GM/DL (6.4-8.2)
[2017-08-06 15:19] LABS: AUTOMATED NEUTROPHIL # 5.4 TH/MM3 (1.8-7.7); BASOPHIL % 0.2 % (0.0-2.0); EOSINOPHIL % 0.2 % (0.0-4.0); HEMATOCRIT 44.3 % (35.0-46.0); HEMOGLOBIN 16.1 GM/DL (11.6-15.3); LYMPHOCYTE # 0.8 TH/MM3 (1.0-4.8); MEAN CELL VOLUME 93.4 FL (80.0-100.0); MEAN CORPUSCULAR HEMOGLOBIN 33.9 PG (27.0-34.0); MEAN CORPUSCULAR HGB CONC 36.3 % (32.0-36.0); MONO % 16.3 % (0.0-8.0); MONOCYTE # 1.2 TH/MM3 (0-0.9); NEUT % 72.3 % (16.0-70.0); PLATELET COUNT 232 TH/MM3 (150-450); RED BLOOD COUNT 4.74 MIL/MM3 (4.00-5.30); RED CELL DISTRIBUTION WIDTH 13.2 % (11.6-17.2); WHITE BLOOD COUNT 7.4 TH/MM3 (4.0-11.0)
[2017-08-06 15:22] LABS: SODIUM (NA) 114 MEQ/L (136-145)
[2017-08-06] MEDS ORDERED: SODIUM CHLOR 0.9% 1000 ML INJ 1,000 ML IV ONE (15:30)
--- NOTE | 2017-08-06 16:00 | PD ---
Physical Exam Date Seen by Provider: August 06, 2017 Data Data Last Documented VS Vital Signs Date Time Temp Pulse Resp B/P (MAP) Pulse Ox O2 Delivery O2 Flow Rate FiO2 08/06/17 15:01 99 16 146/87 (106) 102 16 148/91 (110) 108 16 125/79 (94) 08/06/17 14:27 100 Room Air 08/06/17 13:58 98.7 Orders Orders Electrocardiogram (08/06/17 14:13) Complete Blood Count With Diff (08/06/17 14:13) Comprehensive Metabolic Panel (08/06/17 14:13) Magnesium (Mg) (08/06/17 14:13) Urinalysis - C+S If Indicated (08/06/17 14:13) Chest, Single Ap (08/06/17 14:13) Ecg Monitoring (08/06/17 14:13) Iv Access Insert/Monitor (08/06/17 14:13) Oximetry (08/06/17 14:13) Sodium Chloride 0.9% Flush (Ns Flush) (08/06/17 14:15) Influenzae A/B Antigen (08/06/17 14:13) Ct Brain W/O Iv Contrast(Rout) (08/06/17 ) Orthostatic Vital Signs (08/06/17 14:15) Sodium Chlor 0.9% 1000 Ml Inj (Ns 1000 M (08/06/17 15:30) Labs Laboratory Tests Test 08/06/17 14:20 White Blood Count 7.4 TH/MM3 Red Blood Count 4.74 MIL/MM3 Hemoglobin 16.1 GM/DL Hematocrit 44.3 % Mean Corpuscular Volume 93.4 FL Mean Corpuscular Hemoglobin 33.9 PG Mean Corpuscular Hemoglobin Concent 36.3 % Red Cell Distribution Width 13.2 % Platelet Count 232 TH/MM3 Mean Platelet Volume 7.0 FL Neutrophils (%) (Auto) 72.3 % Lymphocytes (%) (Auto) 11.0 % Monocytes (%) (Auto) 16.3 % Eosinophils (%) (Auto) 0.2 % Basophils (%) (Auto) 0.2 % Neutrophils # (Auto) 5.4 TH/MM3 Lymphocytes # (Auto) 0.8 TH/MM3 Monocytes # (Auto) 1.2 TH/MM3 Eosinophils # (Auto) 0.0 TH/MM3 Basophils # (Auto) 0.0 TH/MM3 CBC Comment AUTO DIFF Differential Comment AUTO DIFF CONFIRMED Hematology Comments Blood Urea Nitrogen 10 MG/DL Creatinine 0.75 MG/DL Random Glucose 98 MG/DL Total Protein 8.3 GM/DL Albumin 4.2 GM/DL Calcium Level 9.1 MG/DL Magnesium Level 2.0 MG/DL Alkaline Phosphatase 54 U/L Aspartate Amino Transf (AST/SGOT) 17 U/L Alanine Aminotransferase (ALT/SGPT) 22 U/L Total Bilirubin 2.1 MG/DL Sodium Level 114 MEQ/L Potassium Level 3.0 MEQ/L Chloride Level 75 MEQ/L Carbon Dioxide Level 25.5 MEQ/L Anion Gap 14 MEQ/L Estimat Glomerular Filtration Rate 78 ML/MIN MDM Medical Record Reviewed: Yes Supervised Visit with SUNNY: Yes Narrative Course I, Dr. Grider, have reviewed the advance practice practitioner's BURKE Barker documentation and am in agreement, met with the patient face to face, made the diagnosis, and the medical decision making was done by me. *My assessment and Findings: Symptomatic hyponatremia Critical Care Narrative Aggregate critical care time was 30 minutes. Time to perform other separately billable procedures was not included in the critical care time. My time did not include minutes spent treating any other patients simultaneously or on activities that did not directly contribute to the patient's treatment. The services I provided to this patient were to treat and/or prevent clinically significant deterioration that could result in: , decompensation, deterioration I provided critical care services requiring my management, as noted below: Chart data review, documentation time, medication orders and management, vital sign assessments/reviewing monitor data, ordering and reviewing lab tests, ordering and interpreting/reviewing x-rays and diagnostic studies, care of the patient and discussion of the patient with the admitting physicians. Desiree Grider DO August 06, 2017 16:00
--- NOTE | 2017-08-06 16:28 | HHI.HP ---
HPI Service [facility] Primary Care Physician Angélica Prasad MD Admission Diagnosis Hyponatremia Chief Complaint: Confusion, weakness Travel History International Travel<30 Days: No Contact w/Intl Traveler <30 Da: No Traveled to Known Affected Are: No History of Present Illness Ms. Evans is a pleasant 66 y/o WF with hx of A. fib s/p ablation on 07/11/17, hx of breast cancer in 2013 s/p right breast mastectomy/chemo/XRT, GERD, and anxiety. She presented to the ED at [facility] on 08/06/17 with complaints of confusion and generalized weakness. Patient states over the last 3-4 days she has had some nausea and generalized weakness. Pt states that she was started on Cymbalta on 07/31/17 and took two doses last week. She states that after she started the Cymbalta she began having dizziness, nausea and generalized weakness when she tries to get up and walk. She was not eating or drinking much of anything for a few days last week after starting this new medicine. She was having dry heaving. She does not feel lightheaded or like she is going to pass out. Today she got up and she felt so weak she fell back onto her buttocks. She reports that she remembers the entire thing, however her friend at bedside tells me that she looked pale and was "not with it" for a brief period of time. Pt denies any hx of thyroid issues. Denies any hx of CHF, liver disease or liver failure, HTN, stroke, no hx of endocrine problems. Denies any kidney disease. Review of Systems Constitutional: COMPLAINS OF: Change in appetite, DENIES: Fever, Chills Eyes: DENIES: Vision loss Ears, nose, mouth, throat: DENIES: Hearing loss Respiratory: DENIES: Cough Cardiovascular: DENIES: Chest pain Gastrointestinal: COMPLAINS OF: GERD, Nausea, DENIES: Abdominal pain, Constipation, Diarrhea, Vomiting Genitourinary: DENIES: Urgency, Hematuria Musculoskeletal: DENIES: Back pain, Neck pain Integumentary: DENIES: Rash Immunologic/allergic: DENIES: Urticaria Neurologic: DENIES: Headache Psychiatric: DENIES: Confusion Past Family Social History Past Medical History A. fib s/p ablation x 2, last one on 07/11/[address] Baldemar MULLINS Hx of breast cancer s/p right mastectomy in 2013, pt with left breast nodule Anxiety Past Surgical History Right breast mastectomy in 2012 and trans-flap reconstruction A. fib ablation in 2012 and in 07/2017 Knee surgery, right knee for torn meniscus Carpal tunnel surgery on right Reported Medications --Eliquis 5 Mg PO BID --Omeprazole 20 Mg DAILY -Vitamin D3 1,000 Units PO DAILY --Duloxetine 30 Mg PO DAILY --ProAir Allergies: Coded Allergies: No Known Allergies (Unverified , 08/06/17) Family History Brother with hx of bipolar disorder Father with hx of COPD Sister with hx of breast cancer Social History (+)Alcohol use, drinks 1 beer per day and a mimosa on Monday, occasional wine. 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 SKIN: No rashes, ecchymoses or lesions. Cool and dry. HEENT: Atraumatic. Normocephalic. No temporal or scalp tenderness. No scleral icterus. Airway patent. NECK: Trachea midline, supple, nontender. CARDIO: Regular RESP: CTA bilaterally. No wheezes, rales, or rhonchi. ABD: +BS, soft, non-tender, nondistended. EXT: Extremities without clubbing, cyanosis, or edema. NEURO: Awake and alert. Motor and sensory grossly within normal limits. Normal speech. Laboratory Laboratory Tests Test 08/06/17 14:20 White Blood Count 7.4 Red Blood Count 4.74 Hemoglobin 16.1 Hematocrit 44.3 Mean Corpuscular Volume 93.4 Mean Corpuscular Hemoglobin 33.9 Mean Corpuscular Hemoglobin Concent 36.3 Red Cell Distribution Width 13.2 Platelet Count 232 Mean Platelet Volume 7.0 Neutrophils (%) (Auto) 72.3 Lymphocytes (%) (Auto) 11.0 Monocytes (%) (Auto) 16.3 Eosinophils (%) (Auto) 0.2 Basophils (%) (Auto) 0.2 Neutrophils # (Auto) 5.4 Lymphocytes # (Auto) 0.8 Monocytes # (Auto) 1.2 Eosinophils # (Auto) 0.0 Basophils # (Auto) 0.0 CBC Comment AUTO DIFF Differential Comment AUTO DIFF CONFIRMED Hematology Comments Blood Urea Nitrogen 10 Creatinine 0.75 Random Glucose 98 Total Protein 8.3 Albumin 4.2 Calcium Level 9.1 Magnesium Level 2.0 Alkaline Phosphatase 54 Aspartate Amino Transf (AST/SGOT) 17 Alanine Aminotransferase (ALT/SGPT) 22 Total Bilirubin 2.1 Sodium Level 114 Potassium Level 3.0 Chloride Level 75 Carbon Dioxide Level 25.5 Anion Gap 14 Estimat Glomerular Filtration Rate 78 Date/Time Source Procedure Growth Status 08/06/17 14:25 Nasal Washing Influenza Types A,B Antigen (MARIA ISABEL) Pending Received Result Diagram: 08/06/17 1420 08/06/17 1420 Imaging Last Impressions Chest X-Ray 08/06/17 1413 Signed Impressions: Service Date/Time: Sunday, August 06, 2017 14:48 - CONCLUSION: Nonspecific hazy opacity at the right costophrenic sulcus that appears to extend outside of the lung and likely represents superficial soft tissue shadow. No other acute cardiopulmonary disease identified. Yunior Guerrero MD Head CT 08/06/17 0000 Signed Impressions: Service Date/Time: Sunday, August 06, 2017 14:29 - CONCLUSION: No acute intracranial findings. Yunior Guerrero MD Caprini VTE Risk Assessment Caprini VTE Risk Assessment: Mod/High Risk (score >= 2) Caprini Risk Assessment Model Point Value = 1 Point Value = 2 Point Value = 3 Point Value = 5 Age 41-60 Minor surgery BMI > 25 kg/m2 Swollen legs Varicose veins or History of unexplained or recurrent spontaneous Oral contraceptives or hormone replacement Sepsis (< 1 month) Serious lung disease, including pneumonia (< 1 month) Abnormal pulmonary function Acute myocardial infarction Congestive heart failure (< 1 month) History of inflammatory bowel disease Medical patient at bed rest Age 61-74 Arthroscopic surgery Major open surgery (> 45 min) Laparoscopic surgery (> 45 min) Malignancy Confined to bed (> 72 hours) Immobilizing plaster cast Central venous access Age >= 75 History of VTE Family history of VTE Factor V Leiden Prothrombin [id number] Lupus anticoagulant Anticardiolipin antibodies Elevated serum homocysteine Heparin-induced thrombocytopenia Other congenital or acquired thrombophilia Stroke (< 1 month) Elective arthroplasty Hip, pelvis, or leg fracture Acute spinal cord injury (< 1 month) Prophylaxis Regimen Total Risk Factor Score Risk Level Prophylaxis Regimen 0-1 Low Early ambulation 2 Moderate Order ONE of the following: *Sequential Compression Device (SCD) *Heparin 5000 units SQ BID 3-4 Higher Order ONE of the following medications: *Heparin 5000 units SQ TID *Enoxaparin/Lovenox 40 mg SQ daily (WT < 150 kg, CrCl > 30 mL/min) *Enoxaparin/Lovenox 30 mg SQ daily (WT < 150 kg, CrCl > 10-29 mL/min) *Enoxaparin/Lovenox 30 mg SQ BID (WT < 150 kg, CrCl > 30 mL/min) AND/OR *Sequential Compression Device (SCD) 5 or more Highest Order ONE of the following medications: *Heparin 5000 units SQ TID (Preferred with Epidurals) *Enoxaparin/Lovenox 40 mg SQ daily (WT < 150 kg, CrCl > 30 mL/min) *Enoxaparin/Lovenox 30 mg SQ daily (WT < 150 kg, CrCl > 10-29 mL/min) *Enoxaparin/Lovenox 30 mg SQ BID (WT < 150 kg, CrCl > 30 mL/min) AND *Sequential Compression Device (SCD) Assessment and Plan Problem List: (1) Hyponatremia ICD Codes: E87.1 - Hypo-osmolality and hyponatremia Status: Acute Plan: Hyponatremia Hypokalemia Generalized weakness Nausea - 66 y/o WF with hx of A. fib s/p ablation on 07/11/17, hx of breast cancer in 2013 s/p right breast mastectomy/chemo/XRT, GERD, and anxiety. - She presented to the ED at [facility] on 08/06/17 with complaints of confusion and generalized weakness. Patient states over the last 3-4 days she has had some nausea and generalized weakness. Pt states that she was started on Cymbalta on 07/31/17 and took two doses last week. She states that after she started the Cymbalta she began having dizziness, nausea and generalized weakness when she tries to get up and walk. She was not eating or drinking much of anything for a few days last week after starting this new medicine. - Labs at admission to the ED noted a drop in her Na+ to 114 compared to previous labs on 07/11/17 where her Na+ was 135. - Her potassium was low at admission as well which was 3.0. - Pts hyponatremia may be related to the addition of the SSRI - We will check serum and urine osmolality and urine Na+, TSH and free T4 - Pt is being given NS 1000mL in the ED. Recheck BMP at 2000 tonight before ordering continued IVF replacement - Provide potassium replacement. - Recheck labs in AM - Supportive care - Encourage oral intake A. fib s/p ablation on 07/11/17 - Pt in NSR on telemetry in the ED - Cont. Eliquis 5mg po BID - Monitor on telemetry GERD - Cont. PPI (2) Weakness ICD Codes: R53.1 - Weakness Status: Acute (3) Atrial fibrillation ICD Codes: I48.91 - Unspecified atrial fibrillation Physician Certification 2 Midnight Certification Type: Admission for Inpatient Services Order for Inpatient Services The services are ordered in accordance with Medicare regulations or non- Medicare payer requirements, as applicable. In the case of services not specified as inpatient-only, they are appropriately provided as inpatient services in accordance with the 2-midnight benchmark. Estimated LOS (days): 3 3 days is the estimated time the patient will need to remain in the hospital, assuming treatment plan goals are met and no additional complications. Post-Hospital Plan: Not yet determined Desiree Martinez August 06, 2017 16:28
[2017-08-06] MEDS ORDERED: ALBUAER3 INH (16:47)
[2017-08-06] MEDS ORDERED: DULO1CAP2 PO (16:47)
[2017-08-06] MEDS ORDERED: POTASSIUM CHLORIDE 20 MEQ CONTROLLED RELEASE TAB PO ONE (17:00)
[2017-08-06] MEDS ORDERED: ONDANSETRON HCL 4 MG/2 ML VIAL IV PRN (17:00)
[2017-08-06] MEDS ORDERED: ACETAMINOPHEN 325 MG TAB PO PRN (17:00)
[2017-08-06 20:04] LABS: AMORPHOUS SEDIMENT, URINE RARE; BACTERIA, URINE OCC /hpf; BILIRUBIN, URINE NEG (NEG); BLOOD, URINE NEG (NEG); GLUCOSE,URINE NEG (NEG); KETONE, URINE 10 mg/dL (NEG); MUCUS URINE FEW /lpf (OCC); NITRITE,URINE NEG (NEG); SQUAMOUS EPITHELIAL CELL URINE 2 /hpf (0-5); URINE COLOR STRAW (YELLW/STRAW); URINE LEUKOCYTE ESTERASE LARGE (NEG)
[2017-08-06 20:37] LABS: SODIUM,RANDOM URINE 11 MEQ/L
[2017-08-06 20:41] LABS: BICARBONATE 26.5 MEQ/L (21.0-32.0); CALCIUM 8.2 MG/DL (8.5-10.1); CREATININE 0.74 MG/DL (0.50-1.00)
[2017-08-06 20:46] LABS: FREE T4 1.34 NG/DL (0.76-1.46)
[2017-08-06 20:52] LABS: OSMOLALITY,URINE 151 MOSM/KG (300-1300)
[2017-08-06] MEDS ORDERED: APIXABAN 2.5 MG TABLET PO SCH (21:00)
[2017-08-06] MEDS: NS + KCL 20 MEQ INJ 1,000 ML IV SCH ×2 (21:36→21:52)
[2017-08-07] VITALS (11 sets, daily range): BP systolic 124–145; BP diastolic 65–86; PULSE 75–107; RESP 16–18; TEMP 97–98.9; O2SAT 96–99
[2017-08-07 05:30] LABS: AUTOMATED NEUTROPHIL # 2.9 TH/MM3 (1.8-7.7); BASOPHIL % 0.5 % (0.0-2.0); EOSINOPHIL % 0.7 % (0.0-4.0); HEMATOCRIT 39.1 % (35.0-46.0); HEMOGLOBIN 14.3 GM/DL (11.6-15.3); LYMPH % 20.8 % (9.0-44.0); MEAN CELL VOLUME 93.1 FL (80.0-100.0); MEAN PLATELET VOLUME 6.6 FL (7.0-11.0); MONO % 18.9 % (0.0-8.0); MONOCYTE # 0.9 TH/MM3 (0-0.9); NEUT % 59.1 % (16.0-70.0); PLATELET COUNT 229 TH/MM3 (150-450); RED CELL DISTRIBUTION WIDTH 13.2 % (11.6-17.2); WHITE BLOOD COUNT 4.8 TH/MM3 (4.0-11.0)
[2017-08-07 05:35] LABS: MEAN CORPUSCULAR HGB CONC 36.6 % (32.0-36.0)
[2017-08-07 05:57] LABS: BICARBONATE 25.6 MEQ/L (21.0-32.0); CALCIUM 8.5 MG/DL (8.5-10.1); CREATININE 0.62 MG/DL (0.50-1.00); MAGNESIUM 2.1 MG/DL (1.5-2.5)
--- NOTE | 2017-08-07 08:43 | HHI.PR ---
Subjective Remarks Pt feeling overall better this morning She denies any urinary symptoms, dysuria or urinary frequency but noted that her urine had been cloudy. Denies any nausea/vomiting, chest pain or SOB. Objective Vitals Vital Signs Date Time Temp Pulse Resp B/P (MAP) Pulse Ox O2 Delivery O2 Flow Rate FiO2 08/07/17 07:56 88 18 127/76 (93) 97 Room Air 08/07/17 05:23 98.7 75 16 141/70 (93) 99 Room Air 08/07/17 04:39 78 18 127/65 (85) 98 Room Air 08/07/17 02:30 78 18 137/70 (92) 99 Room Air 08/07/17 00:45 78 16 145/67 (93) 99 Room Air 08/06/17 21:42 98.1 78 18 117/67 (84) 99 Room Air 08/06/17 19:46 78 18 120/67 (84) 99 Room Air 08/06/17 17:29 100 18 161/95 (117) 100 Nasal Cannula 08/06/17 15:01 99 16 146/87 (106) 102 16 148/91 (110) 108 16 125/79 (94) 08/06/17 14:27 100 Room Air 08/06/17 14:11 103 16 100 Room Air 08/06/17 13:58 98.7 108 18 128/71 (90) 99 Result Diagram: 08/07/17 0520 08/07/17 0520 Other Results Laboratory Tests Test 08/06/17 14:20 08/06/17 19:35 08/06/17 19:50 08/07/17 00:53 White Blood Count 7.4 TH/MM3 Red Blood Count 4.74 MIL/MM3 Hemoglobin 16.1 GM/DL Hematocrit 44.3 % Mean Corpuscular Volume 93.4 FL Mean Corpuscular Hemoglobin 33.9 PG Mean Corpuscular Hemoglobin Concent 36.3 % Red Cell Distribution Width 13.2 % Platelet Count 232 TH/MM3 Mean Platelet Volume 7.0 FL Neutrophils (%) (Auto) 72.3 % Lymphocytes (%) (Auto) 11.0 % Monocytes (%) (Auto) 16.3 % Eosinophils (%) (Auto) 0.2 % Basophils (%) (Auto) 0.2 % Neutrophils # (Auto) 5.4 TH/MM3 Lymphocytes # (Auto) 0.8 TH/MM3 Monocytes # (Auto) 1.2 TH/MM3 Eosinophils # (Auto) 0.0 TH/MM3 Basophils # (Auto) 0.0 TH/MM3 CBC Comment AUTO DIFF Differential Comment AUTO DIFF CONFIRMED Hematology Comments Blood Urea Nitrogen 10 MG/DL 7 MG/DL Creatinine 0.75 MG/DL 0.74 MG/DL Random Glucose 98 MG/DL 102 MG/DL Total Protein 8.3 GM/DL Albumin 4.2 GM/DL Calcium Level 9.1 MG/DL 8.2 MG/DL Magnesium Level 2.0 MG/DL Alkaline Phosphatase 54 U/L Aspartate Amino Transf (AST/SGOT) 17 U/L Alanine Aminotransferase (ALT/SGPT) 22 U/L Total Bilirubin 2.1 MG/DL Sodium Level 114 MEQ/L 117 MEQ/L 122 MEQ/L Potassium Level 3.0 MEQ/L 3.3 MEQ/L Chloride Level 75 MEQ/L 82 MEQ/L Carbon Dioxide Level 25.5 MEQ/L 26.5 MEQ/L Anion Gap 14 MEQ/L 9 MEQ/L Estimat Glomerular Filtration Rate 78 ML/MIN 79 ML/MIN Urine Color STRAW Urine Turbidity CLEAR Urine pH 6.0 Urine Specific Stanton 1.005 Urine Protein NEG mg/dL Urine Glucose (UA) NEG mg/dL Urine Ketones 10 mg/dL Urine Occult Blood NEG Urine Nitrite NEG Urine Bilirubin NEG Urine Urobilinogen LESS THAN 2.0 MG/DL Urine Leukocyte Esterase LARGE Urine RBC 3 /hpf Urine WBC 53 /hpf Urine Squamous Epithelial Cells 2 /hpf Urine Amorphous Sediment RARE Urine Bacteria OCC /hpf Urine Mucus FEW /lpf Microscopic Urinalysis Comment CULTURE INDICATED Urine Osmolality 151 MOSM/KG Urine Random Sodium 11 MEQ/L Serum Osmolality 245 MOSM/KG Free Thyroxine 1.34 NG/DL Thyroid Stimulating Hormone 3rd Gen 0.403 uIU/ML Test 08/07/17 05:20 White Blood Count 4.8 TH/MM3 Red Blood Count 4.20 MIL/MM3 Hemoglobin 14.3 GM/DL Hematocrit 39.1 % Mean Corpuscular Volume 93.1 FL Mean Corpuscular Hemoglobin 34.0 PG Mean Corpuscular Hemoglobin Concent 36.6 % Red Cell Distribution Width 13.2 % Platelet Count 229 TH/MM3 Mean Platelet Volume 6.6 FL Neutrophils (%) (Auto) 59.1 % Lymphocytes (%) (Auto) 20.8 % Monocytes (%) (Auto) 18.9 % Eosinophils (%) (Auto) 0.7 % Basophils (%) (Auto) 0.5 % Neutrophils # (Auto) 2.9 TH/MM3 Lymphocytes # (Auto) 1.0 TH/MM3 Monocytes # (Auto) 0.9 TH/MM3 Eosinophils # (Auto) 0.0 TH/MM3 Basophils # (Auto) 0.0 TH/MM3 CBC Comment AUTO DIFF Differential Comment AUTO DIFF CONFIRMED Blood Urea Nitrogen 7 MG/DL Creatinine 0.62 MG/DL Random Glucose 95 MG/DL Calcium Level 8.5 MG/DL Magnesium Level 2.1 MG/DL Sodium Level 123 MEQ/L Potassium Level 3.9 MEQ/L Chloride Level 89 MEQ/L Carbon Dioxide Level 25.6 MEQ/L Anion Gap 8 MEQ/L Estimat Glomerular Filtration Rate 97 ML/MIN Imaging Last Impressions Chest X-Ray 08/06/17 1413 Signed Impressions: Service Date/Time: Sunday, August 06, 2017 14:48 - CONCLUSION: Nonspecific hazy opacity at the right costophrenic sulcus that appears to extend outside of the lung and likely represents superficial soft tissue shadow. No other acute cardiopulmonary disease identified. Yunior Guerrero MD Head CT 08/06/17 0000 Signed Impressions: Service Date/Time: Sunday, August 06, 2017 14:29 - CONCLUSION: No acute intracranial findings. Yunior Guerrero MD Objective Remarks General: NAD, AAOx3 Chest: CTA Cardiac: Regular Abd: +BS, soft ND/NT Ext: No edema A/P Problem List: (1) Hyponatremia ICD Codes: E87.1 - Hypo-osmolality and hyponatremia Status: Acute Plan: Hyponatremia Hypokalemia Generalized weakness Nausea - 66 y/o WF with hx of A. fib s/p ablation on 07/11/17, hx of breast cancer in 2013 s/p right breast mastectomy/chemo/XRT, GERD, and anxiety. - She presented to the ED at [facility] on 08/06/17 with complaints of confusion and generalized weakness. Patient states over the last 3-4 days she has had some nausea and generalized weakness. Pt states that she was started on Cymbalta on 07/31/17 and took two doses last week. She states that after she started the Cymbalta she began having dizziness, nausea and generalized weakness when she tries to get up and walk. She was not eating or drinking much of anything for a few days last week after starting this new medicine. - Labs at admission to the ED noted a drop in her Na+ to 114 compared to previous labs on 07/11/17 where her Na+ was 135. - Her potassium was low at admission as well which was 3.0. - Pts hyponatremia may be related to the addition of the SSRI and poor oral intake - Serum osmolality 245, Urine osmolality 151, Urine Na+ 11, TSH and free T4 WNL - Pt is being given NS 1000mL in the ED. And then given some gentle IVF with NS with KCL overnight, stopped around 0500 this morning. - Repeat Na+ levels following admission were 117-->122-->123 this morning. - Provided potassium replacement with improvement in K+. - Recheck labs this afternoon and in AM - Supportive care - Encourage oral intake A. fib s/p ablation on 07/11/17 - Pt in NSR on telemetry in the ED - Cont. Eliquis 5mg po BID - Monitor on telemetry GERD - Cont. PPI (2) Weakness ICD Codes: R53.1 - Weakness Status: Acute (3) Atrial fibrillation ICD Codes: I48.91 - Unspecified atrial fibrillation Assessment and Plan Patient examined. Assessment and plan formulated with Desiree Martinez PA-C. I agree with the above. Pt admitted with c/o nausea/vomiting. Pt felt that these symptoms coincided with starting cymbalta. Pt received IV NS overnight. Pt's NA increased from 117 to 127. IVFs stopped. Repeat BMP in AM Problem Qualifiers (1) Atrial fibrillation: Qualified Codes: I48.2 - Chronic atrial fibrillation Desiree Martinez August 07, 2017 08:43 Jose Elias Gonzalez DO August 08, 2017 09:27
[2017-08-07] MEDS ORDERED: NON-FORMULARY DRUG (Omeprazole 20 MG) SCH (09:00)
[2017-08-07] MEDS: APIXABAN 5 MG TABLET PO SCH ×2 (09:47→19:57)
[2017-08-07] MEDS: PANTOPRAZOLE SOD 20 MG DELAYED RELEASE TAB PO SCH (09:48)
--- NOTE | 2017-08-07 10:49 | EKG ---
Date Performed: 08/06/2017 Time Performed: 14:48:53 PTAGE: 66 years EKG: Sinus rhythm PATTERN CONSISTENT WITH PULMONARY DISEASE LEFT ANTERIOR FASCICULAR BLOCK ABNORMAL ECG Since the PREVIOUS TRACING , no significant change noted PREVIOUS TRACIN07/12/2017 05.37 DOCTOR: Rajan Culver Interpretating Date/Time 08/07/2017 10:47:47
[2017-08-07] MEDS ORDERED: METOPROLOL TARTRATE 50 MG TAB PO ONE (22:30)
[2017-08-07] MEDS ORDERED: ADENOSINE IV SOLN 3 MG/ML 2 ML VIAL IV PUSH ONE (22:45)
[2017-08-08] VITALS (7 sets, daily range): BP systolic 111–130; BP diastolic 70–80; PULSE 66–84; RESP 16–17; TEMP 97.3–98.1; O2SAT 95–99
--- NOTE | 2017-08-08 09:02 | HHI.PR ---
Subjective Remarks Pt went into A. flutter/RVR last night around 11:00PM with HR in the 130-140's Pt received Adenosine and Metoprolol and went back into NSR on telemetry Objective Vitals Vital Signs Date Time Temp Pulse Resp B/P (MAP) Pulse Ox O2 Delivery O2 Flow Rate FiO2 08/08/17 04:00 97.9 84 16 115/75 (88) 95 08/08/17 00:00 97.3 82 16 112/70 (84) 96 08/07/17 23:21 78 08/07/17 20:00 98.9 107 16 131/75 (93) 97 08/07/17 16:00 97.9 101 18 140/83 (102) 98 08/07/17 12:00 97.0 102 16 132/86 (101) 99 08/07/17 09:06 84 18 124/78 (93) 08/07/17 09:00 98.1 98 17 132/81 (98) 96 Result Diagram: 08/07/17 0520 08/07/17 1625 Other Results Laboratory Tests Test 08/06/17 14:20 08/06/17 19:35 08/06/17 19:50 08/07/17 00:53 White Blood Count 7.4 TH/MM3 Red Blood Count 4.74 MIL/MM3 Hemoglobin 16.1 GM/DL Hematocrit 44.3 % Mean Corpuscular Volume 93.4 FL Mean Corpuscular Hemoglobin 33.9 PG Mean Corpuscular Hemoglobin Concent 36.3 % Red Cell Distribution Width 13.2 % Platelet Count 232 TH/MM3 Mean Platelet Volume 7.0 FL Neutrophils (%) (Auto) 72.3 % Lymphocytes (%) (Auto) 11.0 % Monocytes (%) (Auto) 16.3 % Eosinophils (%) (Auto) 0.2 % Basophils (%) (Auto) 0.2 % Neutrophils # (Auto) 5.4 TH/MM3 Lymphocytes # (Auto) 0.8 TH/MM3 Monocytes # (Auto) 1.2 TH/MM3 Eosinophils # (Auto) 0.0 TH/MM3 Basophils # (Auto) 0.0 TH/MM3 CBC Comment AUTO DIFF Differential Comment AUTO DIFF CONFIRMED Hematology Comments Blood Urea Nitrogen 10 MG/DL 7 MG/DL Creatinine 0.75 MG/DL 0.74 MG/DL Random Glucose 98 MG/DL 102 MG/DL Total Protein 8.3 GM/DL Albumin 4.2 GM/DL Calcium Level 9.1 MG/DL 8.2 MG/DL Magnesium Level 2.0 MG/DL Alkaline Phosphatase 54 U/L Aspartate Amino Transf (AST/SGOT) 17 U/L Alanine Aminotransferase (ALT/SGPT) 22 U/L Total Bilirubin 2.1 MG/DL Sodium Level 114 MEQ/L 117 MEQ/L 122 MEQ/L Potassium Level 3.0 MEQ/L 3.3 MEQ/L Chloride Level 75 MEQ/L 82 MEQ/L Carbon Dioxide Level 25.5 MEQ/L 26.5 MEQ/L Anion Gap 14 MEQ/L 9 MEQ/L Estimat Glomerular Filtration Rate 78 ML/MIN 79 ML/MIN Urine Color STRAW Urine Turbidity CLEAR Urine pH 6.0 Urine Specific [place]um[place] 1.005 Urine Protein NEG mg/dL Urine Glucose (UA) NEG mg/dL Urine Ketones 10 mg/dL Urine Occult Blood NEG Urine Nitrite NEG Urine Bilirubin NEG Urine Urobilinogen LESS THAN 2.0 MG/DL Urine Leukocyte Esterase LARGE Urine RBC 3 /hpf Urine WBC 53 /hpf Urine Squamous Epithelial Cells 2 /hpf Urine Amorphous Sediment RARE Urine Bacteria OCC /hpf Urine Mucus FEW /lpf Microscopic Urinalysis Comment CULTURE INDICATED Urine Osmolality 151 MOSM/KG Urine Random Sodium 11 MEQ/L Serum Osmolality 245 MOSM/KG Free Thyroxine 1.34 NG/DL Thyroid Stimulating Hormone 3rd Gen 0.403 uIU/ML Test 08/07/17 05:20 08/07/17 16:25 White Blood Count 4.8 TH/MM3 Red Blood Count 4.20 MIL/MM3 Hemoglobin 14.3 GM/DL Hematocrit 39.1 % Mean Corpuscular Volume 93.1 FL Mean Corpuscular Hemoglobin 34.0 PG Mean Corpuscular Hemoglobin Concent 36.6 % Red Cell Distribution Width 13.2 % Platelet Count 229 TH/MM3 Mean Platelet Volume 6.6 FL Neutrophils (%) (Auto) 59.1 % Lymphocytes (%) (Auto) 20.8 % Monocytes (%) (Auto) 18.9 % Eosinophils (%) (Auto) 0.7 % Basophils (%) (Auto) 0.5 % Neutrophils # (Auto) 2.9 TH/MM3 Lymphocytes # (Auto) 1.0 TH/MM3 Monocytes # (Auto) 0.9 TH/MM3 Eosinophils # (Auto) 0.0 TH/MM3 Basophils # (Auto) 0.0 TH/MM3 CBC Comment AUTO DIFF Differential Comment AUTO DIFF CONFIRMED Blood Urea Nitrogen 7 MG/DL Creatinine 0.62 MG/DL Random Glucose 95 MG/DL Calcium Level 8.5 MG/DL Magnesium Level 2.1 MG/DL Sodium Level 123 MEQ/L 127 MEQ/L Potassium Level 3.9 MEQ/L Chloride Level 89 MEQ/L Carbon Dioxide Level 25.6 MEQ/L Anion Gap 8 MEQ/L Estimat Glomerular Filtration Rate 97 ML/MIN Imaging Last Impressions Chest X-Ray 08/06/17 1413 Signed Impressions: Service Date/Time: Sunday, August 06, 2017 14:48 - CONCLUSION: Nonspecific hazy opacity at the right costophrenic sulcus that appears to extend outside of the lung and likely represents superficial soft tissue shadow. No other acute cardiopulmonary disease identified. Yunior Guerrero MD Head CT 08/06/17 0000 Signed Impressions: Service Date/Time: Sunday, August 06, 2017 14:29 - CONCLUSION: No acute intracranial findings. Yunior Guerrero MD Objective Remarks General: NAD, AAOx3 Chest: CTA Cardiac: Regular Abd: +BS, soft ND/NT Ext: No edema A/P Problem List: (1) Hyponatremia ICD Codes: E87.1 - Hypo-osmolality and hyponatremia Status: Acute Plan: Hyponatremia Hypokalemia Generalized weakness Nausea - 66 y/o WF with hx of A. fib s/p ablation on 07/11/17, hx of breast cancer in 2013 s/p right breast mastectomy/chemo/XRT, GERD, and anxiety. - She presented to the ED at [facility] on 08/06/17 with complaints of confusion and generalized weakness. Patient states over the last 3-4 days she has had some nausea and generalized weakness. Pt states that she was started on Cymbalta on 07/31/17 and took two doses last week. She states that after she started the Cymbalta she began having dizziness, nausea and generalized weakness when she tries to get up and walk. She was not eating or drinking much of anything for a few days last week after starting this new medicine. - Labs at admission to the ED noted a drop in her Na+ to 114 compared to previous labs on 07/11/17 where her Na+ was 135. - Her potassium was low at admission as well which was 3.0. - Pts hyponatremia may be related to the addition of the SSRI and poor oral intake - Serum osmolality 245, Urine osmolality 151, Urine Na+ 11, TSH and free T4 WNL - Pt is being given NS 1000mL in the ED. And then given some gentle IVF with NS with KCL overnight, stopped around 0500 this morning. - Repeat Na+ levels following admission were 117 (5/6)-->122 (5/6)-->123 (5/7)-- >127 (5/7). - Provided potassium replacement with improvement in K+. - Await repeat labs this AM - Supportive care - Encourage oral intake A. fib s/p ablation on 07/11/17 - Pt went into A. flutter/RVR last night around 11:00PM with HR in the 130-140's - Pt received Adenosine and Metoprolol and went back into NSR on telemetry - Cont. Metoprolol 25mg po BID - Consult Dr. Mcdermott - Cont. Eliquis 5mg po BID - Monitor on telemetry GERD - Cont. PPI (2) Weakness ICD Codes: R53.1 - Weakness Status: Acute (3) Atrial fibrillation ICD Codes: I48.91 - Unspecified atrial fibrillation Assessment and Plan Patient examined. Assessment and plan formulated with Desiree Martinez PA-C. I agree with the above. Pt developed A. Fib with RVR overnight. Pt was given adenosine and started on metoprolol 25mg PO BID Pt converted back into NSR. Pt had an ablation with Dr. Mcdermott about 1 month ago. Case d/w Dr. Mcdermott. He will consult. Problem Qualifiers (1) Atrial fibrillation: Qualified Codes: I48.2 - Chronic atrial fibrillation Desiree Martinez August 08, 2017 09:02 Jose Elias Gonzalez DO August 08, 2017 09:28
[2017-08-08 09:37] LABS: AUTOMATED NEUTROPHIL # 2.6 TH/MM3 (1.8-7.7); BASOPHIL % 0.6 % (0.0-2.0); EOSINOPHIL # 0.1 TH/MM3 (0-0.4); EOSINOPHIL % 1.3 % (0.0-4.0); HEMATOCRIT 39.9 % (35.0-46.0); HEMOGLOBIN 13.8 GM/DL (11.6-15.3); LYMPHOCYTE # 0.8 TH/MM3 (1.0-4.8); MEAN CELL VOLUME 96.4 FL (80.0-100.0); MEAN CORPUSCULAR HEMOGLOBIN 33.4 PG (27.0-34.0); MEAN CORPUSCULAR HGB CONC 34.7 % (32.0-36.0); MONO % 17.3 % (0.0-8.0); MONOCYTE # 0.7 TH/MM3 (0-0.9); NEUT % 62.8 % (16.0-70.0); PLATELET COUNT 238 TH/MM3 (150-450); RED BLOOD COUNT 4.14 MIL/MM3 (4.00-5.30); RED CELL DISTRIBUTION WIDTH 13.3 % (11.6-17.2); WHITE BLOOD COUNT 4.2 TH/MM3 (4.0-11.0)
[2017-08-08 10:02] LABS: BICARBONATE 28.1 MEQ/L (21.0-32.0); CALCIUM 8.9 MG/DL (8.5-10.1); CREATININE 0.69 MG/DL (0.50-1.00); MAGNESIUM 2.3 MG/DL (1.5-2.5)
[2017-08-08] MEDS: APIXABAN 5 MG TABLET PO SCH (10:25)
[2017-08-08] MEDS: METOPROLOL TARTRATE 25 MG TAB PO SCH ×2 (10:25→20:08)
[2017-08-08] MEDS: PANTOPRAZOLE SOD 20 MG DELAYED RELEASE TAB PO SCH (10:25)
--- NOTE | 2017-08-08 11:01 | EKG ---
Date Performed: 08/07/2017 Time Performed: 22:33:41 PTAGE: 66 years EKG: ATRIAL FLUTTER/TACHYCARDIA WITH RAPID VENTRICULAR RESPONSE LOW QRS VOLTAGE IN PRECORDIAL LE ADS POSSIBLE ANTERIOR MYOCARDIAL INFARCTION , PROBABLY OLD INFERIOR MYOCARDIAL INFARCTION , PROBABLY OLD ST DEPRESSION, CONSIDER SUBENDOCARDIAL INJURY ABNORMAL ECG PREVIOUS TRACING : 08/06/2017 14.48 DOCTOR: Cj Sterling Interpretating Date/Time 08/08/2017 11:00:49
--- NOTE | 2017-08-08 19:56 | MB ---
cc: Nusrat Mcdermott MD, Hanscy MD Braithwaite,Mumtaz Prasad,Angélica UMANZOR DATE: 08/08/2017 REASON FOR CONSULTATION: Supraventricular tachyarrhythmia. HISTORY OF PRESENT ILLNESS: Mrs. Nunn is a 66-year-old female with history of atrial fibrillation, previous ablation, admitted to the emergency room due to tachyarrhythmia. She was found in a short VA time tachyarrhythmia. Adenosine was given. The patient converted into sinus rhythm. I was consulted for further evaluation and management. The chart was reviewed. The patient was evaluated. ALLERGIES: NONE. SOCIAL HISTORY: Negative for smoking and drinking. FAMILY HISTORY: Noncontributory to her current medical management. MEDICATIONS: The patient is currently on Eliquis and metoprolol 50 mg a day. REVIEW OF SYSTEMS: The patient currently referred no chest pain, no chest discomfort. No fever. PHYSICAL EXAMINATION: GENERAL: Alert, fully oriented. VITAL SIGNS: Blood pressure 111/75, pulse 72, respiratory rate 18. LUNGS: Ventilated. CARDIOVASCULAR: S1, S2. No gallop. No murmur. ABDOMEN: Soft. No mass. No bruits. EXTREMITIES: No edema. CARDIOLOGY STUDIES: Electrocardiogram on hospitalization shows supraventricular tachyarrhythmia with short VA time. Subsequent electrocardiogram indicates sinus rhythm. LABORATORY DATA: Hemoglobin 13.8, white blood cell 4.2. Potassium is 4.0, creatinine is 0.69. Sodium at the beginning was around 117. TSH 0.403. ASSESSMENT AND RECOMMENDATIONS: Mrs. Gomez had atrial fibrillation and it was ablated. A recent Holter showed no atrial fibrillation. She has a short VA time tachyarrhythmia resolved with adenosine. She is back in sinus rhythm. My recommendation is discharge home. Continue with current medication. Eliquis can be discontinued. She can be on aspirin 81 mg a day. I will see her in 2 weeks in my office as an outpatient. At that point, decision for possible AV reentrant tachyarrhythmia or AV reentrant tachycardia will be taken. Case discussed extensively with her. Nusrat Mcdermott MD HS/SA , 07:37 PM , 07:55 PM
[2017-08-09] VITALS: BP 121/70; PULSE 73; RESP 16; TEMP 98; O2SAT 96
[2017-08-09 04:00] VITALS: BP 125/72; PULSE 74; RESP 16; TEMP 98.1; O2SAT 95
[2017-08-09 08:00] VITALS: BP 123/70; PULSE 70; RESP 15; TEMP 97.8; O2SAT 98
[2017-08-09 08:14] LABS: BICARBONATE 26.8 MEQ/L (21.0-32.0); CALCIUM 8.9 MG/DL (8.5-10.1); CREATININE 0.7 MG/DL (0.50-1.00)
[2017-08-09 09:00] VITALS: PULSE 65
[2017-08-09] MEDS ORDERED: ASPIRIN 81 MG CHEW TAB CHEW SCH (09:00)
[2017-08-09] MEDS: PANTOPRAZOLE SOD 20 MG DELAYED RELEASE TAB PO SCH (09:39)
[2017-08-09] MEDS: METOPROLOL TARTRATE 25 MG TAB PO SCH (09:39)
--- NOTE | 2017-08-09 11:53 | HHI.DCPOC ---
Discharge Care Plan Diagnosis: (1) Hyponatremia (2) Weakness (3) Atrial fibrillation (4) S/P ablation of atrial fibrillation Goals to Promote Your Health * To prevent worsening of your condition and complications * To maintain your health at the optimal level Directions to Meet Your Goals Take your medications as prescribed Follow your dietary instruction Follow activity as directed Keep your appointments as scheduled Take your immunizations and boosters as scheduled If your symptoms worsen call your PCP, if no PCP go to Urgent Care Center or Emergency Room Smoking is Dangerous to Your Health. Avoid second hand smoke Call the 24-hour hour crisis hotline for domestic abuse at 1) f/u with PCP, Dr. Angélica Prasad in 1 week 2) f/u with Cardiology, Dr. Benny Mcdermott, in 2 weeks. Jose Elias Gonzalez DO August 09, 2017 11:53
--- NOTE | 2017-08-09 11:54 | HHI.DS ---
Discharge Summary Admission Date August 06, 2017 at 16:39 Discharge Date: August 09, 2017 Admitting Diagnosis Hyponatremia (1) Hyponatremia Diagnosis: Principal ICD Codes: E87.1 - Hypo-osmolality and hyponatremia Status: Acute (2) Weakness Diagnosis: Principal ICD Codes: R53.1 - Weakness Status: Acute (3) Atrial fibrillation Diagnosis: Principal ICD Codes: I48.91 - Unspecified atrial fibrillation Consultants Dr. Milton Mcdermott, Cardiology/EPS Brief History Ms. Evans is a pleasant 66 y/o WF with hx of A. fib s/p ablation on 07/11/17, hx of breast cancer in 2012 s/p right breast mastectomy/chemo/XRT, GERD, and anxiety. She presented to the ED at [facility] on [place]06/17 with complaints of confusion and generalized weakness. Patient states over the last 3-4 days she has had some nausea and generalized weakness. Pt states that she was started on Cymbalta on 07/31/17 and took two doses last week. She states that after she started the Cymbalta she began having dizziness, nausea and generalized weakness when she tries to get up and walk. She was not eating or drinking much of anything for a few days last week after starting this new medicine. She was having dry heaving. She does not feel lightheaded or like she is going to pass out. Today she got up and she felt so weak she fell back onto her buttocks. She reports that she remembers the entire thing, however her friend at bedside tells me that she looked pale and was "not with it" for a brief period of time. Pt denies any hx of thyroid issues. Denies any hx of CHF, liver disease or liver failure, HTN, stroke, no hx of endocrine problems. Denies any kidney disease. CBC/BMP: 08/08/17 0855 08/09/17 0708 Significant Findings Laboratory Tests Test 08/06/17 14:20 08/06/17 19:35 08/06/17 19:50 08/07/17 00:53 Hemoglobin 16.1 GM/DL (11.6-15.3) Mean Corpuscular Hemoglobin Concent 36.3 % (32.0-36.0) Neutrophils (%) (Auto) 72.3 % (16.0-70.0) Monocytes (%) (Auto) 16.3 % (0.0-8.0) Lymphocytes # (Auto) 0.8 TH/MM3 (1.0-4.8) Monocytes # (Auto) 1.2 TH/MM3 (0-0.9) Total Protein 8.3 GM/DL (6.4-8.2) Total Bilirubin 2.1 MG/DL (0.2-1.0) Sodium Level 114 MEQ/L (136-145) 117 MEQ/L (136-145) 122 MEQ/L (136-145) Potassium Level 3.0 MEQ/L (3.5-5.1) 3.3 MEQ/L (3.5-5.1) Chloride Level 75 MEQ/L (98-107) 82 MEQ/L (98-107) Estimat Glomerular Filtration Rate 78 ML/MIN (>89) 79 ML/MIN (>89) Urine Ketones 10 mg/dL (NEG) Urine Leukocyte Esterase LARGE (NEG) Urine WBC 53 /hpf (0-5) Urine Bacteria OCC /hpf (NONE) Urine Mucus FEW /lpf (OCC) Urine Osmolality 151 MOSM/KG (300-1300) Calcium Level 8.2 MG/DL (8.5-10.1) Serum Osmolality 245 MOSM/KG (275-295) Test 08/07/17 05:20 08/07/17 16:25 08/08/17 08:55 08/09/17 07:08 Mean Corpuscular Hemoglobin Concent 36.6 % (32.0-36.0) Mean Platelet Volume 6.6 FL (7.0-11.0) Monocytes (%) (Auto) 18.9 % (0.0-8.0) 17.3 % (0.0-8.0) Sodium Level 123 MEQ/L (136-145) 127 MEQ/L (136-145) 130 MEQ/L (136-145) 131 MEQ/L (136-145) Chloride Level 89 MEQ/L (98-107) 94 MEQ/L (98-107) 97 MEQ/L (98-107) Lymphocytes # (Auto) 0.8 TH/MM3 (1.0-4.8) Estimat Glomerular Filtration Rate 86 ML/MIN (>89) 84 ML/MIN (>89) Imaging Last Impressions Chest X-Ray 08/06/17 1413 Signed Impressions: Service Date/Time: Sunday, August 06, 2017 14:48 - CONCLUSION: Nonspecific hazy opacity at the right costophrenic sulcus that appears to extend outside of the lung and likely represents superficial soft tissue shadow. No other acute cardiopulmonary disease identified. Yunior Guerrero MD Head CT 08/06/17 0000 Signed Impressions: Service Date/Time: Sunday, August 06, 2017 14:29 - CONCLUSION: No acute intracranial findings. Yunior Guerrero MD PE at Discharge General: NAD, AAOx3 Chest: CTA Cardiac: Regular Abd: +BS, soft ND/NT Ext: No edema Hospital Course (1) Hyponatremia ICD Codes: E87.1 - Hypo-osmolality and hyponatremia Status: Acute Plan: Hyponatremia Hypokalemia Generalized weakness Nausea - 66 y/o WF with hx of A. fib s/p ablation on 07/11/17, hx of breast cancer in 2012 s/p right breast mastectomy/chemo/XRT, GERD, and anxiety. - She presented to the ED at [facility] on 08/06/17 with complaints of confusion and generalized weakness. Patient states over the last 3-4 days she has had some nausea and generalized weakness. Pt states that she was started on Cymbalta on 07/31/17 and took two doses last week. She states that after she started the Cymbalta she began having dizziness, nausea and generalized weakness when she tries to get up and walk. She was not eating or drinking much of anything for a few days last week after starting this new medicine. - Labs at admission to the ED noted a drop in her Na+ to 114 compared to previous labs on 07/11/17 where her Na+ was 135. - Her potassium was low at admission as well which was 3.0. - Pts hyponatremia may be related to the addition of the SSRI and poor oral intake - Serum osmolality 245, Urine osmolality 151, Urine Na+ 11, TSH and free T4 WNL - Pt is being given NS 1000mL in the ED. And then given some gentle IVF with NS with KCL overnight, stopped around 0500 this morning. - Repeat Na+ levels following admission were 117 (5/6)-->122 (5/6)-->123 (5/7)-- >127 (5/7), 131 (5/) - Provided potassium replacement with improvement in K+. - Pt will be discharge to home today off cymbalta. - f/u with PCP, Dr. Angélica Prasad in 1 week - Note, on 08/07/17 and 08/08/17 pt was interviewed and examined together with Desiree Martinez PA-C - on 08/09/17 pt was interviewed and examined together with pt's floor nurse, Aurora Mckeon. - All question were answered to the best of my ability. A. fib s/p ablation on 07/11/17 - Pt went into A. flutter/RVR last night around 11:00PM with HR in the 130-140's - Pt received Adenosine and Metoprolol and went back into NSR on telemetry - Cont. Metoprolol 25mg po BID - Case reviewed by Dr. Mcdermott - Dr. Mcdermott noted that the pt was back in NSR - stop eliquis - resume ASA 81mg daily - f/u with Dr. Mcdermott outpt in 2 weeks GERD - Cont. PPI (2) Weakness ICD Codes: R53.1 - Weakness Status: Acute - improved over the course of pt's hospitalization - Pt able to ambulate without difficulty - I offered, but pt declined home PT upon discharge. Pt Condition on Discharge: Stable Discharge Disposition: Discharge Home Discharge Instructions DIET: Follow Instructions for: Heart Healthy Diet Activities to Avoid: Strenuous Activity Follow up Referrals: Cardiology - 2 Weeks with Nusrat Mcdermott MD PCP Follow-up - [address] Angélica Prasad New Medications: Aspirin (Tgt Aspirin) 81 Mg Chw 81 MG CHEW DAILY for atrial fib for 30 Days, EA Metoprolol Tartrate (Metoprolol Tartrate) 25 Mg Tab 25 MG PO BID for atrial fibrillation, #60 TAB 0 Refills Continued Medications: Albuterol 8.5 GM Inh (Proair Hfa 8.5 GM Inh) 90 Mcg/Act Aer 1 PUFF INH Q4H PRN for SHORTNESS OF BREATH, #1 INHALER 0 Refills 108 mcg/actuation Cholecalciferol (Vitamin D3) 1,000 Unit Cap 1000 UNITS DAILY for Nutritional Supplement, #1 BOTTLE 0 Refills Omeprazole (Omeprazole) 40 Mg Cap 20 MG DAILY, #30 CAP 0 Refills Discontinued Medications: Apixaban (Eliquis) 2.5 Mg Tab 5 MG PO BID for Blood Clot Prevention, TAB 0 Refills Duloxetine (Duloxetine DR) 30 Mg Capdr 30 MG PO DAILY, #30 CAP 0 Refills Jose Elias Gonzalez DO August 09, 2017 11:54
[2017-08-09 12:00] VITALS: BP 124/68; PULSE 72; RESP 16; TEMP 97.6; O2SAT 97
[2017-08-09] MEDS ORDERED: METO25TA3 PO (12:11)
[2017-08-09] MEDS ORDERED: ASPI81 CHEW (12:15)
== END 2017-08-09 14:01 | disposition home or self-care (01) | DRG 641 ==
LOC: NEPC 13:56 → NEDA 16:39 → NEDH 21:50 → N07B 08-07 09:10
PROVIDERS: ADMIT Hospitalist; ATTEND Hospitalist
DX: E87.1 Hypo-osmolality and hyponatremia (principal); I47.1 Supraventricular tachycardia; I48.92 Unspecified atrial flutter; E87.6 Hypokalemia; K21.9 Gastro-esophageal reflux disease without esophagitis; F41.9 Anxiety disorder, unspecified; Z79.01 Long term (current) use of anticoagulants; Z80.3 Family history of malignant neoplasm of breast; Z85.3 Personal history of malignant neoplasm of breast; Z87.891 Personal history of nicotine dependence; Z90.11 Acquired absence of right breast and nipple
CPT/HCPCS: 70450; 71045; 80048; 80053; 81001; 83735; 83930; 83935; 84295; 84300; 84439; 84443; 85025; 87086; 87804; 93005; 96360; J0153; J3480; J7030

== ENCOUNTER → 2017-08-15 | Outpatient (CLI) | payer OTHER ==
[~2017-08-15] MED LIST changes: +ALBUAER3 INH; -APIX2.5T PO; +ASPI81 CHEW; +METO25TA3 PO
== END ==
LOC: EREF 10:48
PROVIDERS: ATTEND Internal Medicine Hematology
DX: N64.89 Other specified disorders of breast (principal)

== ENCOUNTER 2017-08-23 12:55 | Day surgery (SDC) | payer OTHER ==
[2017-08-23] VITALS (8 sets, daily range): BP systolic 119–140; BP diastolic 74–86; PULSE 72–91; RESP 16–18; TEMP 97.5–98; O2SAT 97–100
[~2017-08-23] VITALS: Ht 165.1 cm; Wt 82.0 kg
[2017-08-23] MEDS ORDERED: LORazepam 1 MG TAB SL SCH (13:30)
[2017-08-23] MEDS: SODIUM CHLORID 0.9% 500 ML INJ 500 ML IV SCH (13:30)
[2017-08-23] MEDS ORDERED: LACTATED RINGER'S 1000 ML IV PRN (13:30)
[2017-08-23] MEDS ORDERED: METOPROLOL TARTRATE 25 MG TAB PO PRN (13:30)
[2017-08-23] MEDS ORDERED: SODIUM CHLORID 0.9% 500 ML IV PRN (13:30)
[2017-08-23] MEDS ORDERED: CHLORHEXIDINE GLUCONATE 2 % 1 PACK (2 CLOTHS) TOPICAL PRN (13:30)
[2017-08-23] MEDS ORDERED: POVIDONE IODINE 5% (ANTISEPSIS KIT) 4 APPLICATIONS EACH NARE PRN (13:30)
[2017-08-23 13:43] LABS: BASOPHIL % 1.2 % (0.0-2.0); EOSINOPHIL # 0.1 TH/MM3 (0-0.4); EOSINOPHIL % 2.2 % (0.0-4.0); HEMOGLOBIN 14.8 GM/DL (11.6-15.3); LYMPH % 26.4 % (9.0-44.0); MEAN CELL VOLUME 98.1 FL (80.0-100.0); MEAN CORPUSCULAR HEMOGLOBIN 33.7 PG (27.0-34.0); MEAN CORPUSCULAR HGB CONC 34.3 % (32.0-36.0); MONO % 14.4 % (0.0-8.0); MONOCYTE # 0.5 TH/MM3 (0-0.9); NEUT % 55.8 % (16.0-70.0); PLATELET COUNT 312 TH/MM3 (150-450); RED BLOOD COUNT 4.39 MIL/MM3 (4.00-5.30); WHITE BLOOD COUNT 3.6 TH/MM3 (4.0-11.0)
[2017-08-23 13:51] LABS: PROTHROMBIN TIME - PATIENT 10.4 SEC (9.8-11.6)
[2017-08-23 14:06] LABS: BICARBONATE 25.1 MEQ/L (21.0-32.0); CALCIUM 9.5 MG/DL (8.5-10.1); CREATININE 0.89 MG/DL (0.50-1.00)
[2017-08-23] MEDS ORDERED: HEPARIN SODIUM - IV 10,000 UNITS/10 ML VIAL ONE (14:50)
[2017-08-23] MEDS ORDERED: MIDAZOLAM HCL 2 MG/2 ML VIAL ONE (14:50)
[2017-08-23] MEDS ORDERED: ISOPROTERENOL INJ PREMIX 50 ML IV ONE ×2 (15:18→16:53)
[2017-08-23] MEDS ORDERED: HEPARIN-NS/PF INJ 500 ML ONE (15:28)
--- NOTE | 2017-08-23 17:09 | CATHPROC ---
Patient Name: CINDI RIBERA Study #: [id number] Initial MD: Nusrat Mcdermott Date of : 1950 Study Date: 08/23/2017 Cardiac Catheterization Report 08/23/2017 5:09:19 PM Financial #: [id number] 1 of 7 Patient Name: CINDI RIBERA Study #: [id number] Initial MD: Nusrat Mcdermott Date of : 1950 Study Date: 08/23/2017 Entire Case Report Patient Information Patient Name CINDI RIBERA Date of 1950 Age 66 years Financial # [id number] Gender F AlternateID Lab Number 2 Room Number DC09 Height (in) 65.0 Height (cm) 165.1 BSA 1.88 Weight (lbs) 177.8 Weight (kg) 80.8 Patient Address/Phone Number Home Address [facility] Home Phone Number [address] [facility] [address] Study Information Study Number Admission Scheduled Start Study Start [id number] Aug 23 2017 12:55PM 08/23/2017 Aug 23 2017 3:22PM [place] Service Electrophysiology Study Admit Source Facility Department Other [facility] Physician and Clinical Staff Initial Nusrat Molina Sample Maker Original Matty Encinas,RT(R) Other Anesthesia, SERVICE BAR CASHIER Recorder Desiree Crystal,RN Recorder Eunice Rincon,REGINO Recorder Antionette Syed,REGINO Scrub Marta Álvarez,PATTERNMAKER TECH2 08/23/2017 5:09:19 PM Financial #: [id number] 2 of 7 Patient Name: CINDI RIBERA Study #: [id number] Initial MD: Nursat Mcdermott Date of : 1950 Study Date: 08/23/2017 Equipment Time Replenishment Analyst Description Size Mfg Part Number Used/Scraped [id number] 15:27 [employer] PACK, CCL CUSTOM * Used *[id number] 15:27 MEDLINE PACER EMMANUEL, LIMB * 2530 *[id number] Used [id number] 15:27 [employer],WARM AIR CCL * Used *[id number] 15:37 [employer] CATHETER, JSN, QUAD FR 5 Used *[id number] 309337 15:37 [employer] MEDICAL CATHETER, JSN, QUAD FR 5 Used *[id number] 129149 15:37 [employer] MED[employer] CATHETER, JSN, QUAD FR 5 Used *0362573 119054 15:37 [employer] MEDICAL CATHETER, JSN, QUAD FR 5 Used *[id number] 15:27 [employer] MEDICAL ELECTRODE KIT, KOURTNEY X SURFACE * Used *[id number] 364018 15:37 [employer] SHEATH, EPS, FR5 FAST CATH FR 5 Used *[id number] 289071 15:37 [employer] SHEATH, EPS, FR5 FAST CATH FR 5 Used *5652954 509405 15:37 [employer] SHEATH, EPS, FR5 FAST CATH FR 5 Used *[id number] 931514 15:37 [employer] SHEATH, EPS, FR6 FAST CATH FR 6 Used *[id number] 850395 15:37 [employer] SHEATH, EPS, FR8 FAST CATH FR 8 Used *[id number] [facility] PAD, ELECTROSURGICAL 15:27 * [id number] *[id number] Used SURGICAL GROUNDING (BLUE) Insurance Information Insurance Payor Private Health Insurance Third Democrat Third Democrat Number [facility] History: Allergies Allergy Reaction No Known Allergies Labs Hgb (g/dl) Hct (%) WBC (l/cumm) Platelets (thousands) 11.60-17.00 35.00-51.00 4.00-11.00 150.00-450.00 14.8 43 3.6 312 Glucose (mg/dl) BUN (mg/dl) Creatinine (mg/dl) BUN:Creatinine (1:x) 74.00-106.00 7.00-18.00 0.50-1.30 10.00-20.00 94 13 0.8 16.3 08/23/2017 5:09:19 PM Financial #: [id number] 3 of 7 Patient Name: CINDI RIBERA Study #: [id number] Initial MD: Nusrat Mcdermott Date of : 1950 Study Date: 08/23/2017 Na (meq/l) K (meq/l) 136.00-145.00 3.50-5.10 136 4.1 CPK-MB (ng/ML) 0.50-3.60 Not Drawn Medication Medication Total Dose (Bolus/Oral) Medication Total Dosage/Unit 1% XYLOCAINE 40 mL Medications (Bolus/Oral) Medication Time Given Dosage/Unit Administered By Reason 1% XYLOCAINE 08/23/2017 4:11:38 PM 20 mL Nusrat Mcdermott 20 mL 1% XYLOCAINE given in lab by Nusrat Mcdermott in Left Groin via Subcutaneous. Ordered by Shayan Mcdermott 1% XYLOCAINE 08/23/2017 4:13:32 PM 20 mL Nusrat Mcdermott 20 mL 1% XYLOCAINE given in lab by Nusrat Mcdermott in Right Groin via Subcutaneous. Ordered by Dami Mcdermott. Medication (Drip) Medication Time Given Dosage/Unit Concentration/Unit Diluent (ml) Solution ISUPREL 08/23/2017 4:27:12 PM 4 mcg/min 1 mg 250 NaCl .9 4 mcg/min ISUPREL given in lab by Anesthesia, SERVICE BAR CASHIER via Peripheral IV. Pump/Drip Flow = 60 ml/hr using NaCl .9 with a concentration of 1 mg in 250 ml. Ordered by Nusrat Mcdermott. ISUPREL 08/23/2017 4:47:17 PM 20 mcg/min 1 mg 250 NaCl .9 20 mcg/min ISUPREL given in lab by Anesthesia, SERVICE BAR CASHIER via Peripheral IV. Pump/Drip Flow = 300 ml/hr usi ng NaCl .9 with a concentration of 1 mg in 250 ml. Ordered by Nusrat Mcdermott. ISUPREL 08/23/2017 4:57:16 PM 30 mcg/min 1 mg 250 NaCl .9 30 mcg/min ISUPREL given in lab by Anesthesia, SERVICE BAR CASHIER via Peripheral IV. Pump/Drip Flow = 450 ml/hr usi ng NaCl .9 with a concentration of 1 mg in 250 ml. Ordered by Nusrat Mcdermott. ISUPREL DRIP STOPPED 08/23/2017 5:01:50 PM 0 units/hr 0 0 units/hr ISUPREL DRIP STOPPED given in lab by Anesthesia, SERVICE BAR CASHIER. Pump/Drip Flow = 0 ml/hr using [Marifer ution Name]. Ordered by Nusrat Mcdermott. 08/23/2017 5:09:19 PM Financial #: [id number] 4 of 7 Patient Name: CINDI RIBERA Study #: [id number] Initial MD: Nusrat Mcdermott Date of : 1950 Study Date: 08/23/2017 Initial Case Assessment Cardiovascular HR Rhythm NIBP Chest Pain 83 NSR 151/90 0 Edema Present Skin color Skin None Normal Warm Dry Circulatory - Right Pulses Dorsalis Pedis Posterior Tibial Femoral 1 1 1 Scale (0,1,2,3,4,d) Circulatory - Left Pulses Dorsalis Pedis Posterior Tibial Femoral 1 1 1 Scale (0,1,2,3,4,d) Neurological State Oriented to time-place- Alert Moves all extremities person Respiration - General Respiration Rate SpO2 (%) (B/min) 16 99 Chronological Log Time Study Chronological Log 15:21:41 Patient arrived via Bed. 15:21:42 Patient Name, D.O.B, / Armband Verified By R.N. 15:21:42 Consent signed by the physician and the patient and verified by the [facility] staff. 15:21:43 Pre-op and post- op instructions given; patient acknowledges understanding of instructions. 15:21:44 Verbal Stimulation=2 Physical Stimulation=2 Airway=2 Respiration=2 TOTAL=8. (0=absent, 1=li mited, 2=present) Anesthesia at bedside. ALEJO Nair Assumes care of patient. See anesthia records for all vitals and medications during 15:21:46 case 15:21:58 Patient has been NPO for More than 6Hrs. 15:21:58 Skin Breakdown-none per pt 15:22:03 Patient Warmer Placed on the Table. 15:22:04 Disposable Defibrillator Pads Placed On Patient. 15:22:05 Shadi Prominences Protected 15:29:16 A # 20 IV was noted in the Antecubital (left). Grade = 0 0.9NS infusing at KVO 08/23/2017 5:09:19 PM Financial #: [id number] 5 of 7 Patient Name: CINDI RIBERA Study #: [id number] Initial MD: Nusrat Mcdermott Date of : 1950 Study Date: 08/23/2017 15:29:32 A # 20 IV was noted in the Antecubital (right). Grade = 0 0.9NS infusing at KVO 15:29:43 History and physical on the chart or being dictated. Assessment: Initial Case, HR=83 BPM, Rhythm=NSR, PZDW=574/90 mmhg, Chest Pain=0, Edema=None, Color=Normal, Skin = Warm, Dry Right Pulses: Fili Ped=1, Post Tib=1, Femoral=1 15:29:45 Left Pulses: Fili Ped=1, Post Tib=1, Femoral=1 Neurological: State=Alert, Ox3, PACHECO Respiration: Resp=16 B/min, SpO2=99 % 15:31:48 Table restraints applied according to hospital policy 15:35:57 Bilateral groins prepped with 2% chlorhexidine, and draped after a 3 minute waiting time. 15:40:15 MD paged 15:41:55 MD responded 16:03:00 MD arrived. Time Out. Correct patient, procedure, procedure equipment, site and side verified with physicia n present. Time 16:10:42 concurred by MD, individual staff and SERVICE BAR CASHIER. Time Out #2 - Consents verified, patient in correct position, all results are labled and displa yed, safety precautions 16:10:46 taken, antibiotics administered. Time out concurred by MD, individual staff and SERVICE BAR CASHIER in procedu re 16:11:19 Case Start 16:11:38 20 mL 1% XYLOCAINE given in lab by Nusrat Mcdermott in Left Groin via Subcutaneous. Ordered by Nusrat Mcdermott. 16:12:09 Vascular access was obtained in the Fem Vein (left). 16:12:16 Vascular access was obtained in the Fem Vein (left). 16:12:17 Vascular access was obtained in the Fem Vein (left). 16:12:20 A SHEATH, EPS, FR5 FAST CATH FR 5 was advanced into the Fem Vein (left) using the Modified Seldinger technique. 16:12:29 A SHEATH, EPS, FR5 FAST CATH FR 5 was advanced into the Fem Vein (left) using the Modified Seldinger technique. 16:12:32 A SHEATH, EPS, FR5 FAST CATH FR 5 was advanced into the Fem Vein (left) using the Modified Seldinger technique. 16:13:32 20 mL 1% XYLOCAINE given in lab by Nusrat Mcdermott in Right Groin via Subcutaneous. Ordered b y Nusrat Mcdermott. 16:14:02 Vascular access was obtained in the Fem Vein (right). 16:14:06 A SHEATH, EPS, FR6 FAST CATH FR 6 was advanced into the Fem Vein (right) using the Modified Seldinger technique. 16:14:14 A SHEATH, EPS, FR8 FAST CATH FR 8 was advanced into the Fem Vein (right) using the Modified Seldinger technique. A CATHETER, JSN, QUAD FR 5 was advanced vis Fem Vein (left) and placed in the HIS. Placement wa s visually 16:15:14 confirmed under fluoroscopy. A CATHETER, JSN, QUAD FR 5 was advanced vis Fem Vein (left) and placed in the HRA. Placement wa s visually 16:15:53 confirmed under fluoroscopy. A CATHETER, JSN, QUAD FR 5 was advanced vis Fem Vein (left) and placed in the RVA. Placement wa s visually 16:15:57 confirmed under fluoroscopy. A CATHETER, JSN, QUAD FR 5 was advanced vis Fem Vein (right) and placed in the CS. Placement wa s visually 16:17:38 confirmed under fluoroscopy. 16:22:16 EP study in progress 4 mcg/min ISUPREL given in lab by Anesthesia, SERVICE BAR CASHIER via Peripheral IV. Pump/Drip Flow = 60 ml/hr using NaCl .9 with 16:27:12 a concentration of 1 mg in 250 ml. Ordered by Nusrat Mcdermott. 16:35:20 isuprel gtt discontinued per MD 20 mcg/min ISUPREL given in lab by Anesthesia, SERVICE BAR CASHIER via Peripheral IV. Pump/Drip Flow = 300 ml/ hr using NaCl .9 16:47:17 with a concentration of 1 mg in 250 ml. Ordered by Nusrat Mcdermott. 30 mcg/min ISUPREL given in lab by Anesthesia, SERVICE BAR CASHIER via Peripheral IV. Pump/Drip Flow = 450 ml/ hr using NaCl .9 16:57:16 with a concentration of 1 mg in 250 ml. Ordered by Nusrat Mcdermott. 08/23/2017 5:09:19 PM Financial #: [id number] 6 of 7 Patient Name: CINDI RIBERA Study #: [id number] Initial MD: Nusrat Mcdermott Date of : 1950 Study Date: 08/23/2017 0 units/hr ISUPREL DRIP STOPPED given in lab by AnesthesiaALEJO. Pump/Drip Flow = 0 ml/hr edin brasher [Solution Name]. 17:01:50 Ordered by Nusrat Mcdermott. 17:05:03 Catheter(s) removed without difficulty 17:05:06 Sheath(s) left in place, will be removed in Holding Area 17:05:08 Case End 17:05:10 Sterile dressing applied to site 17:05:11 No case complications noted. 17:05:12 Cine recording checked. 17:05:14 Bedside Report will be given. 17:05:17 docu called. Spoke to esmer 17:05:35 Defibrillator and ground pads removed. Skin intact. 17:09:02 EP Procedure was performed. End Study - Contrast Media Used In Study Contrast Total Opened (mL) Total Used (mL) Total Wasted (mL) Omnipaque 0 0 0 End Study - Maximum Contrast Load Max Contrast Load (mL) 505.1 End Study - Radiation Exposure Fluoro Time (minutes) 3.0 End Study - Patient Disposition Complications Transferred To Interventional Outcome No Telemetry Bed successful 08/23/2017 5:09:19 PM Financial #: [id number]
[2017-08-23] MEDS ORDERED: ALBUTEROL SULFATE 90 MCG/ACT HFA 8 GM INHALER INH PRN (17:45)
[2017-08-23] MEDS ORDERED: LORazepam 2 MG/ML VIAL IV PUSH PRN (17:45)
[2017-08-23] MEDS ORDERED: oxyCODONE/ACETAMINOPHEN 5 MG/325 MG TAB PO PRN ×2 (17:45)
[2017-08-23] MEDS ORDERED: ONDANSETRON ODT 4 MG TAB PO PRN (17:45)
[2017-08-23] MEDS ORDERED: LIDOCAINE HCL 1% 50 ML VIAL INFIL PRN (17:45)
[2017-08-23] MEDS ORDERED: SODIUM CHLOR 0.9% 250 ML INJ 250 ML IV PRN (17:45)
[2017-08-23] MEDS ORDERED: BACITRACIN OINT 0.9 GM PKT TOP ONE (17:45)
[2017-08-23] MEDS ORDERED: ATROPINE SULFATE 1 MG/ML VIAL IV PUSH PRN (17:45)
--- NOTE | 2017-08-23 18:23 | MA ---
cc: Nusrat Mcdemrott MD, Hanscy MD Duren,Angélica UMANZOR DATE: 08/23/2017 PROCEDURE: Electrophysiology study, CS cannulation and 3-D mapping, repeat electrophysiology study on Isuprel infusion Repeat electrophysiology post Isuprel infusion, repeat Isuprel infusion at a higher dose. INDICATIONS: Mrs. Evans is a 66-year-old female with history of tachyarrhythmia, previous ablation of atrial fibrillation who was admitted due to now complex tachyarrhythmia, apparently not terminated with adenosine. The decision for electrophysiology study and ablation was taken. The risks, the nature and the benefit of the procedure are clearly stated to her. Risks include pneumothorax, cardiac perforation, stroke, need for open heart surgery and even . The patient understood and agreed to proceed. DESCRIPTION OF PROCEDURE: After written informed consent was obtained, the patient was brought to the EP lab where she was prepped and draped in the usual sterile fashion. Conscious sedation was initiated and maintained throughout the procedure by anesthesiologist. Once sedation was verified, the right and left inguinal area was anesthetized with 2% Xylocaine. Using modified Seldinger technique, the right femoral vein was cannulated on 2 occasions. Two guidewires were advanced. Over the wire, a 6 and an 8-[place] were advanced. Then, the left femoral vein was cannulated on 2 occasions, 2 guidewires were advanced. Over the wire, three 5-[place] Hemaquets were advanced. Then, under fluoroscopic guidance through the 5 and 6-[place] Hemaquet, four 5-[place] curved quadripolar electrophysiology catheters advanced and placed on the his, upper right atrium, coronary sinus and right ventricular apex. Basic intervals were measured. They were within normal limits. As this point, atrial pacing protocol was performed. Atrial pacing protocol consisted of decremental atrial pacing as well as program stimulation with 1 [address] cycle length and up to 2 extrastimuli delivered. Atrial pacing protocol was performed at the coronary sinus as well as upper right atrium. That was performed at proximal mid and distal pole of the coronary sinus catheter. Then, ventricular pacing protocol was performed. There was no VA conduction. Ventricular pacing protocol consisted of decremental ventricular pacing as well as program stimulation with 1 [address] train cycle length and up to 1 extrastimuli delivered. Then, Isuprel infused at 4 mcg. Atrial and ventricular pacing protocol was performed. No tachyarrhythmia was induced. Again, atrial pacing protocol was performed at the coronary sinus as well as the upper right atrium. Then, Isuprel was discontinued. Atrial pacing protocol was repeated again. No tachyarrhythmia was induced. Then, Isuprel reinitiated at 20 mcg, then 20 mcg. No tachyarrhythmia was induced. No atrial fibrillation, no supraventricular tachyarrhythmia was observed. At that point, Isuprel was discontinued. Atrial pacing protocol was repeated again. No tachyarrhythmia was induced. At that point, the procedure was complete. All catheters were removed. I did use 3-D mapping for catheter placement. The patient is going to be transferred to the recovery room. No incident to report. The patient tolerated the procedure. Blood loss minimal. Her sister was informed over the phone. I. ELECTROCARDIOGRAM: At baseline the patient was in sinus. Post procedure electrocardiogram was unchanged. II. BASIC INTERVAL: Basic cycle length was around 800 milliseconds, AH at 90 and HV around 150 milliseconds. III. ATRIAL PACING PROTOCOL: Wenckebach at baseline was around 460 milliseconds. On Isuprel it was around 230 milliseconds. ERP of the node was 600 at baseline up to 220 milliseconds. No tachyarrhythmia was induced. IV: VENTRICULAR PACING PROTOCOL: There was no VA at baseline. There was VA on Isuprel. No tachyarrhythmia was induced. CONCLUSION: Negative electrophysiology study for supraventricular tachyarrhythmia. COMMENT AND RECOMMENDATION: The patient is going to be transferred to the recovery room, will be observed, will be discharged home in the morning, because the patient has no transportation. I will have a long conversation with the patient tomorrow when fully awake from sedation. MD NICKOLAS Schumacher/ , 05:26 PM , 06:23 PM
[2017-08-23] MEDS: METOPROLOL TARTRATE 25 MG TAB PO SCH (21:24)
[2017-08-24] VITALS (18 sets, daily range): BP systolic 102–129; BP diastolic 60–80; PULSE 66–78; RESP 15–18; TEMP 98.3–98.7; O2SAT 96–99
[2017-08-24] MEDS: SODIUM CHLORID 0.9% 500 ML INJ 500 ML IV SCH (06:10)
[2017-08-24] MEDS: METOPROLOL TARTRATE 25 MG TAB PO SCH (08:47)
[2017-08-24] MEDS ORDERED: ASPIRIN 81 MG CHEW TAB CHEW SCH (09:00)
[2017-08-24] MEDS ORDERED: PANTOPRAZOLE SOD 20 MG DELAYED RELEASE TAB PO SCH (09:00)
--- NOTE | 2017-08-24 13:13 | HHI.PR ---
Subjective Remarks Doing ok Objective Vital Signs Date Time Temp Pulse Resp B/P (MAP) Pulse Ox O2 Delivery O2 Flow Rate FiO2 08/24/17 11:40 98.7 69 15 117/65 (82) 99 08/24/17 11:37 72 08/24/17 07:35 98.5 72 16 124/80 (95) 97 08/24/17 07:00 71 08/24/17 06:18 68 08/24/17 05:00 68 08/24/17 04:00 70 08/24/17 03:35 72 08/24/17 03:05 98.3 75 18 129/78 (95) 98 08/24/17 02:00 74 08/24/17 01:00 72 08/24/17 00:00 72 08/23/17 23:00 72 08/23/17 23:00 97.6 76 18 119/74 (89) 99 08/23/17 22:00 84 08/23/17 21:09 97.9 81 18 140/85 (103) 100 08/23/17 21:00 82 08/23/17 20:00 80 08/23/17 19:00 85 08/23/17 18:30 97.5 88 16 139/86 (103) 99 08/23/17 17:25 100 Room Air 08/23/17 13:27 98.0 91 16 128/81 (97) 97 I/O 08/23/17 08/23/17 08/23/17 08/24/17 08/24/17 08/24/17 07:00 15:00 23:00 07:00 15:00 23:00 Intake Total 900 ml Output Total 2250 ml Balance -1350 ml Intake Oral 900 ml Output Urine Total 2250 ml Result Diagram: 08/23/17 1320 08/23/17 1320 Imaging Alert, anxious , fully oriented Lungs: ventilated heart: s1, s2 regular, no gallop abdomen: soft, no mass Ext: no edema Current Medications Medications (Trade) Dose Ordered Sig/Bernadette Route Start Time Stop Time Status Last Admin Sodium Chloride 500 ml @ 30 mls/hr [id number] IV 08/23/17 13:30 (Ativan) 1 mg SKIMMER SCOOP OPERATOR SL 08/23/17 13:30 08/26/17 13:29 (Percocet 5-325 Mg) 1 tab Q4H PRN PO 08/23/17 17:45 (Percocet 5-325 Mg) 2 tab Q4H PRN PO 08/23/17 17:45 (Ativan Inj) 0.5 mg UNSCH PRN IV PUSH 08/23/17 17:45 08/24/17 17:44 (Atropine Inj) 0.5 mg UNSCH PRN IV PUSH 08/23/17 17:45 Sodium Chloride 250 ml @ 500 mls/hr ONCE PRN IV 08/23/17 17:45 08/24/17 17:44 (Zofran Odt) 4 mg Q4H PRN PO 08/23/17 17:45 (Xylocaine 1% Inj (50 ml)) 10 ml UNSCH PRN INFIL 08/23/17 17:45 08/24/17 17:44 (Proair Hfa Inh) 1 puff Q4H PRN INH 08/23/17 17:45 (Aspirin Chew) 81 mg DAILY CHEW 08/24/17 09:00 08/24/17 08:47 (Lopressor) 25 mg BID PO 08/23/17 21:00 08/24/17 08:47 (Protonix) 20 mg DAILY PO 08/24/17 09:00 08/24/17 08:47 Assessment and Plan Problem List: (1) Supraventricular tachycardia ICD Codes: I47.1 - Supraventricular tachycardia Plan: EP study was performed. No tachy induced case extensively discussed with the patient yesterday and today She is asking to go to cardiac rehab. I advise her to exercise and contact her PCP for referral Will be DH today follow up as previously scheduled Nusrat Mcdermott MD August 24, 2017 13:12
--- NOTE | 2017-08-25 08:17 | EKG ---
Date Performed: 08/23/2017 Time Performed: 20:11:02 PTAGE: 66 years EKG: Sinus rhythm Left axis deviation RBBB with left anterior fascicular block Low QRS voltages in precordial leads Ab normal ECG PREVIOUS TRACING : 08/23/2017 13.39 DOCTOR: Nusrat Mcdermott Interpretating Date/Time 08/25/2017 08:13:22
--- NOTE | 2017-08-25 08:28 | EKG ---
Date Performed: 08/23/2017 Time Performed: 13:39:24 PTAGE: 66 years EKG: Sinus rhythm . Left axis deviation Low QRS voltages in precordial leads Borderline ECG PREVIOUS TRACING : 08/07/2017 22.33 DOCTOR: Nusrat Mcdermott Interpretating Date/Time 08/25/2017 08:18:25
== END 2017-08-24 15:12 | disposition home or self-care (01) ==
LOC: HDIC 12:55 → HDOC 12:55 → HCIS 18:20 → HDOC 08-24 15:12
PROVIDERS: ATTEND Internal Medicine Interventional Cardiology
DX: I47.1 Supraventricular tachycardia (principal); R06.02 Shortness of breath; I48.91 Unspecified atrial fibrillation; K21.9 Gastro-esophageal reflux disease without esophagitis
CPT/HCPCS: 00537; 80048; 85025; 85610; 85730; 86850; 86900; 86901; 93005; 93623; 93653; C1730; C1732; J1644; J2250; J3010